=== PATIENT | male | born 1985 | race Caucasian/White ===

== ENCOUNTER 2022-05-27 02:14 | Emergency (ER) | payer OTHER, SELFPAY ==
[2022-05-27 02:24] VITALS: BP 144/125; PULSE 92; RESP 20; TEMP 36.3; O2SAT 98
[2022-05-27 02:30] VITALS: BP 157/86; PULSE 89; RESP 20; O2SAT 98
--- NOTE | 2022-05-27 02:54 | ED.DIZZY ---
HPI - Dizziness General Chief Complaint: High Blood Pressure Stated Complaint: High Blood Pressure Time Seen by Provider: 05/27/22 02:35 Source: patient and family Mode of arrival: ambulatory Limitations: no limitations History of Present Illness HPI Narrative: Patient presents with a spell of feeling unwell about 90 minutes prior to arrival, lasting about a 1/2 hour in very gradually improving, no longer present. There was no chest pain but rather a feeling when he awoke from sleep that he was on well, he does not describe what he would feel consistent with anxiety. There was no racing heart. He felt subjectively dizzy and lightheaded but no syncope, vision changes or neurological changes no prior history of similar symptoms. He does have a notable history of hypertension which is treated with lisinopril. No recent adjustments to his medications. He believes that he has seen his primary care provider within about 6 months. He had not checked his blood pressure at home in the past 2 weeks but did decide to check it tonight when he was feeling unwell and it remained around 180 over 100 on several checks. No headache, no vision changes. Symptoms have improved quite a bit. He has never had a stress test. Primary care is through [facility]. No recent illness, no fevers, no trauma no injury. He does have a notable history of obstructive sleep apnea reports good compliance with his CPAP. On specific questioning, he does admit to a stressful job but no recent specific events. Did not try any interventions at home to relieve his symptoms prior to coming to the ED. Past medical history notable for hypertension, obstructive sleep apnea, morbid obesity. Surgical history is notable either for an appendectomy or cholecystectomy, he cannot remember which. Family history is positive for heart disease. He does not smoke, denies any alcohol ingestion. No other risk factors other than listed above for heart disease Related Data Home Medications Medication Instructions Recorded Confirmed lisinopril 20 mg tablet mg 05/27/22 Allergies Allergy/AdvReac Type Severity Reaction Status Date / Time No Known Drug Allergies Allergy Verified 05/27/22 02:23 Review of Systems Narrative: Negative for generalized, HEENT, other cardiovascular, respiratory, GI, skin, musculoskeletal or other neurological changes. Denies anxiety. PFSH PFSH Social History Smoking Status: Never smoker Do you use any of these nicotine containing products: None Second hand tobacco smoke exposure: No How often do you have a drink containing alcohol: monthly or less How often do you have six or more drinks on one occasion: Never AUDIT-C Alcohol total score: 1 Non-prescribed substance use: denies use service: No Exam Const: Vital Signs, click to edit/add: Vital Signs - 24 hr 05/27/22 02:24 05/27/22 02:30 Temperature 97.4 F L Pulse Rate [Left P ulse Oximeter] 92 89 Respiratory Rate 20 20 Blood Pressure [Ri ght Upper Arm] 144/125 H 157/86 H Pulse Oximetry 98 98 Oxygen Delivery Me thod Room Air Room Air Documenting provider has reviewed patient's vital signs: yes Common normals: no apparent distress General appearance: cooperative Other: Seems mildly anxious. Spouse seems supportive HENMT: Common normals: normocephalic Head and scalp: normocephalic Face and sinus: normal facial exam Mouth: oral and palatal mucosa normal Throat: posterior oropharynx normal Eye: Common normals: PERRL, EOMs intact bilaterally and conjunctivae normal Alignment: alignment normal Conjunctiva: conjunctiva(e) normal Pupil: PERRL Neck & C-Spine: Common normals: full ROM and no lymphadenopathy Resp: Common normals: normal respiratory effort and clear to auscultation bilaterally Auscultation: clear to auscultation bilaterally Cardio: Common normals: regular rate, regular rhythm, S1 normal heart sound, S2 normal heart sound, no murmurs and peripheral pulses 2+ throughout Rate: regular rate Rhythm: regular rhythm Heart sounds: S1 normal and S2 normal Peripheral pulses: pulses 2+ throughout GI: Other: Obese but soft. Cannot palpate organ edges but no obvious organomegaly. No tenderness. Extremity: Other: Mild dependent seeming edema, equal and symmetric bilaterally. No signs of venous stasis Neuro: Speech: speech normal Motor exam: strength 5/5 throughout and no movement abnormalities noted Other: Muscle strength +5/5 in all 4 extremities. No tremors. Psych: Other: Engaged and cooperative. Does seem mildly anxious but thought process logical and well organized with good insight. Skin: Common normals: no rashes or lesions noted General skin exam: no rashes or lesions noted Course Vital Signs Vital signs: Initial Vital Signs Temperature 97.4 F L 05/27/22 02:24 Temperature Source Temporal Artery Scan 05/27/22 02:24 Pulse Rate 92 05/27/22 02:24 Pulse Rhythm 05/27/22 02:24 Respiratory Rate 20 05/27/22 02:24 Blood Pressure 144/125 H 05/27/22 02:24 Blood Pressure Mean 131 05/27/22 02:24 Blood Pressure Position Semi-Fowlers 05/27/22 02:24 Pulse Oximetry 98 05/27/22 02:24 Oxygen Delivery Method 05/27/22 02:24 Vital Signs Temperature 97.4 F L 05/27/22 02:24 Pulse Rate 92 05/27/22 02:24 Respiratory Rate 20 05/27/22 02:24 Blood Pressure 144/125 H 05/27/22 02:24 Pulse Oximetry 98 05/27/22 02:24 Oxygen Delivery Method 05/27/22 02:24 Temperature 97.4 F L 05/27/22 02:24 Pulse Rate 89 05/27/22 02:30 Respiratory Rate 20 05/27/22 02:30 Blood Pressure 157/86 H 05/27/22 02:30 Pulse Oximetry 98 05/27/22 02:30 Oxygen Delivery Method 05/27/22 02:30 MDM - Dizziness MDM Narrative Medical decision making narrative: Suspect stress reaction anxiety, blood pressure already improving here in the ED. No signs of stroke. Will do some basic blood work, EKG and monitor cardiac status. He will receive a 0.5 mg of oral lorazepam to see if this has any effect on his dizziness. Will check troponins and if this is normal, anticipate discharge with outpatient follow-up, consideration of stress test. Update: Labs reviewed. Normal. Normal troponins, normal EGD. Went over findings with patient and he did then remember that he has had a stress test within the last 6 months which is even more reassuring. He did have improvement of his dizziness with the lorazepam though it did make him a little bit sleepy as expected. His will be able to drive him home. Follow up with his primary care provider in 2 weeks with a lot of his recent blood pressures and a symptom diary for further management. Medical Records Attestation: I reviewed the patient's medical records. Lab Data Attestation: I reviewed the patient's lab results. Labs: Lab Results 05/27/22 05/27/22 05/27/22 Range/Units 02:46 03:00 03:00 WBC 12.10 H (4.50-11.00) K/uL RBC 4.94 (4.30-5.90) m/uL Hgb 14.1 (13.5-17.5) gm/dL Hct 43.0 (37.0-53.0) % MCV 87 (80-100) fL MCH 29 (26-34) pg MCHC 33 (32-36) gm/dL RDW Coeff of Edna 14.3 (11.5-15.5) % Plt Count 254 (140-440) K/uL Neut % (Auto) 78.7 H (42.0-72.0) % Lymph % (Auto) 12.6 L (20-44) % [place] % (Auto) 6.4 (0.0-11.0) % Eos % (Auto) 1.8 (0.0-7.0) % Baso % (Auto) 0.3 (0.0-3.0) % Neut # (Auto) 9.50 H (1.7-7.0) K/uL Lymph # (Auto) 1.50 (0.90-2.90) K/uL [place] # (Auto) 0.80 (0.00-0.90) K/UL Eos # (Auto) 0.20 (0.00-0.50) K/uL Baso # (Auto) 0.00 (0.00-0.30) K/uL Abs Immat Gran (auto) 0.02 (0.00-0.30) K/uL Sodium 137 (135-149) mmol/L Potassium 3.8 (3.6-5.1) mmol/L Chloride 105 (96-114) mmol/L Carbon Dioxide 23 (20-32) mmol/L BUN 18 (5-24) mg/dL Creatinine 0.9 (0.5-1.5) mg/dL Estimated GFR 112 ml/min Glucose 115 (60-115) mg/dL Calcium 9.0 (8.4-10.6) mg/dL POC Troponin I 0.01 (0.01-0.04) ng/ml ECG Data Attestation: I personally reviewed and interpreted this ECG as follows: ECG interpretation date: 05/27/22 ECG interpretation time: 03:03 Interpretation: Normal sinus rhythm with normal axis. Good R-wave progression with no ST or T-wave abnormalities. No prior EKG available for review Discharge Plan Discharge Clinical Impression: Stress reaction Patient Disposition: Home w/ Parent or Adult Condition: Improved Instructions: Stress (ED), Chronic Hypertension (ED) Additional Instructions: Your EKG is normal and your blood work is reassuring. This is great news. I suspect that you had a reaction to recent stress causing your blood pressure to go up and the dizzy symptoms. These may happen several days after a stressful event and may not be able to be related to anyone thing in particular. Your blood pressure has improved to reasonable levels, I do not recommend changes to your medications. I would like for you to make a followup appointment with her primary care doctor in 1-2 weeks and keep a symptom diary in the interim. If you are continuing to experience these episodes, additional management of anxiety may be warranted. He should also consider doing a stress test to look at your heart if you continue to have symptoms. Come back to the ED if her symptoms worsened significantly. Activity Level: No Restrictions Discharge Diet: Regular Prescriptions: No Action lisinopril 20 mg tablet Stand Alone Forms: [employer] Info Instructions
[2022-05-27] MEDS: LORazepam 0.5 MG TABLET PO (02:56)
[2022-05-27 03:10] LABS: Basophils Percent Auto 0.3 % (0.0-3.0); Eosinophils Percent Auto 1.8 % (0.0-7.0); Hemoglobin* 14.1 gm/dL (13.5-17.5); Immature Granulocytes Abs Auto 0.02 K/uL (0.00-0.30); Lymphocytes Percent Auto 12.6 % (20-44); Mean Corpuscular HGB Conc 33 gm/dL (32-36); Mean Corpuscular Hemoglobin 29 pg (26-34); Mean Corpuscular Volume 87 fL (80-100); Monocytes Percent Auto 6.4 % (0.0-11.0); Neutrophils Percent Auto 78.7 % (42.0-72.0); Platelet Count* 254 K/uL (140-440); RDW Coefficient of Variation % 14.3 % (11.5-15.5); Red Blood Count 4.94 m/uL (4.30-5.90)
[2022-05-27 03:14] LABS: Slide Review Reflex No
[2022-05-27 03:15] LABS: Troponin, Point-of-Care* 0.01 ng/ml (0.01-0.04)
--- OUTSIDE RECORDS SUMMARY | 2022-05-27 03:15 | XMS_ITS | Encounter Summary ---
:1985 Author Organization [facility] Address [address] [place] [address] Care Team Providers Name Role Phone Unavailable Primary Care Provider Unavailable Reason for Visit Reason Comments COVID Nurse Line Encounter Details Date Type Department Care Team Description 08/06/2020 Clinical Communication Division of NEIDA Lowe Nurse Brittanie [facility] Aurelio Sanches [facility] [address] [place] [address] in [facility] [address] [place] [phone] [address] [facility] (Work) [place] [phone] Social History Tobacco Use Types Packs/Day Years Used Date Smoking Tobacco: Never Assessed Sex Assigned at Date Recorded Not on file documented as of this encounter Miscellaneous Notes Telephone Encounter - Lori Lowe RHank. - 08/06/2020 4:00 PM BRANCH LENDING OFFICER COVID-19 Nurse Line Screening ASSESSMENT Combo COVID + Upper Respiratory Infection (URI) Screening Select the most appropriate pathway: : Adult Have you had close contact* with a person who has a LABORATORY CONFIRMED case of COVID-19 in the past 14 days?: Yes- Provide quarantine instructions. (Continue Screening)( tested positive yesterday(08/05/20)) In the last 48 hours, have you had a fever* OR symptoms that are unrelated to a preexisting illness?: Fever, New cough, New muscle aches, New change or loss of taste sensation Do you have any of the following urgent symptoms?: No urgent symptoms noted (Continue Screening) Do you have any of the following respiratory syntonical virus (RSV) complications? : No complications noted (Continue Screening) Are all the following symptoms present: temperature of 100.0 degrees Fahrenheit or greater, muscle aches or headache AND a cough?: No all symptoms are not present (End Screening) Symptom Onset Date of symptom onset: 08/04/20 Testing Recommendation Endpoint Is testing recommended? : Recommended to test PLAN Endpoint recommendation: Screening positive, testing indicated, advised to be swabbed for COVID-19 and Influenza, sent to [facility] building located at [address] You must call [phone] leo appointment time. Testing hours are Daily 9 am to 7 pm. When you arrive at the testing site: Remain in your vehicle and check-in by phone using the same appointment line number. and Please avoid using public transportation per CDC recommendation. If you do not have personal transportation please self-quarantine until a personal transportation option is available. and Provided instruction to quarantine for 14 days from the last contact exposure to a confirmed COVID-19 case and testing is recommended. The best time to test is 5-7 days after last contact with an infected individual in order to havethe best chance of detecting infection. If you are unsure of your last contact, or would like testing now, we can perform testing now. Even if your test is negative, you should continue to follow official public health quarantine recommendations. Contact your primary care team with any new symptoms. Care Points: -Wash hands frequently with soap and water for at least 20 seconds -If soap and water are not available, use a hand architectural designer -Avoid touching your eyes, nose and mouth. -Clean and disinfect high-touch surfaces routinely. -Wear a mask over your nose and mouth. A cloth face cover is not a substitute for social distancing -Continue to keep about 6 feet between yourself and others. -Avoid public areas and public transportation. -Find new ways to connect with family and friends, get support and share feelings. -Seek emergent care if any of the following occur Trouble breathing Bluish lips or face Persistent pain or pressure in the chest New confusion or inability to rouse. -Notify your regular care provider of any new or worsening symptoms. Symptomatic Carepoints: Separate yourself from others and stay in a specific sick room if able. Avoid sharing personal or household items. Rest. Hydrate. Take Acetaminophen/Ibuprofen as needed to control fever and muscles aches. Use over the counter medications as needed for other symptoms. ExposureCarepoints: Continue to quarantine for 14 days from your last known exposure to someone with a laboratory confirmed case of COVID-19 regardless of a negative test result unless otherwise directed. If you remain asymptomatic and wish to be tested, it is recommended that you wait 5-7 days after the exposure before testing unless otherwise directed. Testing is recommended if you become symptomatic at any point. Education: Patient/caregiver able to teach back Patient agreeable to plan of care: Yes The following references were used: [facility] novel coronavirus (COVID- 19) resources Nursing judgement CH LENDING OFFICER documented in this encounter Plan of Treatment Not on filedocumented as of this encounter Visit Diagnoses Not on filedocumented in this encounter
--- OUTSIDE RECORDS SUMMARY | 2022-05-27 03:15 | XMS_ITS | Encounter Summary ---
:1985 Author Organization [facility] Address [address] [place] [address] Care Team Providers Name Role Phone Unavailable Primary Care Provider Unavailable Encounter Details Date Type Department Care Team Description 12/23/2020 Orders Only [facility] PCP [facility] Teetee Carter M.D. [address] [place], [place] [phone] (Wo rk) Social History Tobacco Use Types Packs/Day Years Used Date Smoking Tobacco: Never Assessed Sex Assigned at Date Recorded Not on file documented as of this encounter Plan of Treatment Not on filedocumented as of this encounter Visit Diagnoses Not on filedocumented in this encounter
--- OUTSIDE RECORDS SUMMARY | 2022-05-27 03:15 | XMS_ITS | Encounter Summary ---
:1985 Author Organization [facility] Address [address] [place] [address] Care Team Providers Name Role Phone Unavailable Primary Care Provider Unavailable Encounter Details Date Type Department Care Team Description 08/07/2020 Admin Visit Department of Family Medicine, [facility] [place] in [place], [place] [address] [phone] Social History Tobacco Use Types Packs/Day Years Used Date Smoking Tobacco: Never Assessed Sex Assigned at Date Recorded Not on file documented as of this encounter Plan of Treatment Not on filedocumented as of this encounter Visit Diagnoses Not on filedocumented in this encounter Additional Health Concerns Infection Onset Date Last Indicated Resolved Time COVID19 Pending 08/07/2020 08/07/2020 08/08/2020 1:21 PM IT PROGRAM ENGAGEMENT DIRECTOR documented as of this encounter
--- OUTSIDE RECORDS SUMMARY | 2022-05-27 03:15 | XMS_ITS | Encounter Summary ---
:1985 Author Organization [facility] Address [address] [place] [address] Care Team Providers Name Role Phone Unavailable Primary Care Provider Unavailable Encounter Details Date Type Department Care Team Description 08/06/2020 Clinical Communication Department of Orthopedic [facility], Pcp Surgery in [place], [place] [address] [place] [address] Social History Tobacco Use Types Packs/Day Years Used Date Smoking Tobacco: Never Assessed Sex Assigned at Date Recorded Not on file documented as of this encounter Miscellaneous Notes Telephone Encounter - Yadira Domínguez - 08/06/2020 3:57 PM CST What is the purpose of the call?: Requesting Testing Only Request Testing In the past 14 days are any of the following symptoms new to you and not related to an existing health condition?: New cough, New sore throat, New myalgias (muscle aches), New change or loss of taste sensation Because of symptoms, transfer patient to: : [place] COVID Nurse Line (End Screening) Symptom Onset Date of symptom onset: 08/05/20 Testing Recommendation Endpoint Is testing recommended? : Transferred to nursing call line Plan: Endpoint recommendation: Transferred to Nursing/COVID Line/Care Team *Reminder if sending patient for testing in [facility] or [facility], route encounter to the correct testing pool. COINER documented in this encounter Plan of Treatment Not on filedocumented as of this encounter Visit Diagnoses Not on filedocumented in this encounter
--- OUTSIDE RECORDS SUMMARY | 2022-05-27 03:15 | XMS_ITS | Encounter Summary ---
:1985 Author Organization [facility] Address [address] [place] [address] Care Team Providers Name Role Phone Unavailable Primary Care Provider Unavailable Reason for Visit Reason Comments Follow-up Encounter Details Date Type Department Care Team Description 08/08/2020 Clinical Communication Division of General Edith Franz, Follow-up Internal Medicine in [place]S., R.N. [place], [place] [address] [facility] [address] [place] [id number] [phone] Social History Tobacco Use Types Packs/Day Years Used Date Smoking Tobacco: Never Assessed Sex Assigned at Date Recorded Not on file documented as of this encounter Miscellaneous Notes Telephone Encounter - Edith Franz, M.S., R.N. - 08/08/2020 2:41 PM LONG DISTANCE BILLING OPERATOR SUBJECTIVE CHIEF COMPLAINT / REASON FOR CALL Follow-up Information Discussed Mr. Richards contacted by COVID-19 Frontline Care Team (CFCT) Registered Nurse for self-monitoring symptom instruction and education related to positive test for SARS-CoV-2 (the virus that causes COVID-19). [facility] and the Center for Disease Control (CDC) require you adhere to symptom monitoring for a minimum of 10 days and follow certain precautions to control the spread of this disease. You are also required to be isolated in your home until further directed by your medical team. During this time the COVID-19 Frontline Care Team will follow up and a Registered Nurse from our team will contact you by phone to follow-up on symptom progression. I have reinforced the importance of isolation with the patient. I also shared that if the patient has any household contacts that start to have symptoms, they should isolate themselves and call the COVID Nurse line at [phone] for assessment and direction. Self-monitor your symptoms at home including dyspnea, chest pain, dizziness/lightheadedness, vomiting, diarrhea, cough, loss or smell or taste, headache, chills, fever, and runny nose and if they startto worsen, contact a member of our Care Team for guidance by calling [phone], 7 days a week from 8am-5pm. If you become significantly ill, call 911 or go to the emergency department. Please wear aface mask when seeking medical services. We discussed that while currently there is not a treatment for COVID-19 as new therapies become available, we may reach out if you meet the indications to receive them, and if a provider thinks you could benefit from receiving them. A CFCT RN steam and power supervisor will be calling back for continued monitoring and follow-up as well as discussion regarding repeat testing, as appropriate. Patient advised, if applicable, to contact their speciality provider for discussion and/or management of other disease processes. Please notify your recent close contacts that they may have been exposed to COVID-19 and would need to quarantine for 14 days since their last contact with you while you were contagious. A close contact is someone who was within 6 feet of an infected person for a cumulative total of 15 minutes or moreover a 24-hour period starting from 2 days before illness onset (or, for asymptomatic patients, 2 days prior to test specimen collection) until the time the patient is isolated. If you have further questions about what constitutes a close contact, please contact your local public health department or visit the CDC website (hyperlink to https://www.cdc.gov/coronavirus/2019-ncov/php/contact-tracing/cont oby-tzsmrrd-misb/appendix.html). PLAN Disposition/Recommendation: self-care appropriate at this time, patient encouraged to call back withquestions Information/Education: patient/caller able to teach back Caller agreeable to plan of care: yes The following references were used: nursing clinical judgement and website www.cdc.gov DISTANCE BILLING OPERATOR documented in this encounter Plan of Treatment Not on filedocumented as of this encounter Visit Diagnoses Not on filedocumented in this encounter Additional Health Concerns Infection Onset Date Last Indicated Resolved Time COVID19 Pending 08/07/2020 08/07/2020 08/08/2020 1:21 PM LONG DISTANCE BILLING OPERATOR [id number]: Patient has met criteria for release from isolation. Please see nursing note for further details. 08/07/2020 08/07/20202019 4:47 PM LONG DISTANCE BILLING OPERATOR Rosa Cummings R.N. documented as of this encounter
--- OUTSIDE RECORDS SUMMARY | 2022-05-27 03:15 | XMS_ITS | Encounter Summary ---
:1985 Author Organization [facility] Address [address] [place] [address] Care Team Providers Name Role Phone Unavailable Primary Care Provider Unavailable Encounter Details Date Type Department Care Team Description 08/08/2020 Virtual Visit Division of General Jareth Tracy COV ID-19 Infection Internal Medicine juliet Reid M.D. (Primary Dx) [place], [place] [address] [facility] [address] [place] [phone] Social History Tobacco Use Types Packs/Day Years Used Date Smoking Tobacco: Never Assessed Sex Assigned at Date Recorded Not on file documented as of this encounter Progress Notes Jareth Tracy M.D. - 08/08/2020 2:10 PM CST TELEPHONE COMMUNICATION NOTE for CFCT This was a telephone notification to Mr. Richards to notify them that their PCR test for SARS-CoV-2 (the virus that causes COVID-19) has returned positive.. The patient was interviewed, but not personallyexamined. Hotel Registration Clerk: no Currently Mr. Richards has the following symptoms: ??? Cough, Chills, Myalgia and Sore throat ??? Date of symptom onset 08/05/2020 ??? Since onset, symptoms have remained the same Mr. Richards has the following risk factors for severe infection: ??? None Was Mr. Richards hospitalized? No The following features of severe or critical COVID infection are/were present: ??? None Risk Factors for Severe Infection w/ COVID-19 Current as of 29 minutes ago 1 0 - 2 Points: Low Risk 3 - 5 Points: Medium Risk >= 6 Points: High Risk The patient's score has not changed in the past year.: No Change Details Returns the total points for all positive risk factors for severe infection with COVID-19 Points Metrics 0 Age: 34 Current as of 29 minutes ago 1 Sex: Male Current as of 29 minutes ago 0 Has Hypertension: No Current as of 29 minutes ago 0 Has Congestive Heart Failure: No Current as of 29 minutes ago 0 Has Congenital Heart Disease: No Current as of 29 minutes ago 0 Has Coronary Artery Disease: No Current as of 29 minutes ago 0 Has Chronic Lung Disease or Asthma: No Current as of 29 minutes ago 0 Has Diabetes: No Current as of 29 minutes ago 0 Patient is Immune Compromised: No Current as of 29 minutes ago 0 Mcc Patient: No Current as of 29 minutes ago 0 COVID-19 Component - End State Renal Disease: 0 Current as of 29 minutes ago 0 Chronic Liver Disease Registry: No Current as of 29 minutes ago 0 : No Current as of 29 minutes ago Mr. Richards has been in the following facilities in the last 14 days: ??? 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 PROBLEM LIST There is no problem list on file for this patient. RESULTS SARS CoV-2 RNA, TMA Date Value Ref Range Status 08/07/2020 Detected (A) Undetected Final Comment: SARS-CoV-2 RNA present. ----ADDITIONAL INFORMATION---- This molecular amplification test was performed using the Aptima SARS-CoV-2 assay ([employer] on the [employer] System under emergency use authorization (EUA) by the U.S. Food and Drug Administration. Fact sheets for this EUA assay can be found at the following links: For Healthcare Providers: https://www.fda.gov/media/666193/download For Patients: https://www.fda.gov/media/699935/download ASSESSMENT/PLAN #1 COVID-19 disease Upcoming [id number] appointments: No Recommendations: Day 0 is 08/07/2020. Symptom monitoring and release from isolation through [facility] CFCT nursing. Initial education call necessary Self-isolation: at least 10 days from the date of the positive PCR. If any symptoms develop, they should contact their healthcare providers. ??? Mr. Richards was advised to continue to monitor their symptoms including dyspnea, chest pain, cough, fevers, lightheadedness/dizziness and vomiting/diarrhea. o If symptoms are worsening, please contact the [facility] CFCT nursing team at [phone]. ??? Worsened shortness of breath ??? New or worsening cough ??? New productive cough or cough with blood ??? New chest pain or pain with breathing ??? Fevers, chills, sweats ??? Vomiting or diarrhea ??? Lightheadedness ? ? New temperature > 38.3 ??C ??? Fast heart rate ??? Fast breathing rate o If directed to the Emergency Room or other care facility, the patient was reminded to - Inform EMS of positive COVID result and wear a mask prior to EMS arrival if available. - If patient is well enough to transport themselves to the emergency room, they should drive themselves (not use taxi, ride-share or public transport). ??? We strongly recommend continuing self-isolation until advised otherwise. o Mr. Richards is aware that they need to: - Remain at home unless requiring medical care - Separate themselves from other people in the home - Avoid sharing personal household items - Clean and disinfect 'high-touch' surfaces daily - Wear a facemask when around other people and cover coughs/sneezes - Practice good hand hygiene - Avoid touching your eyes, nose, and mouth ??? Self-isolation should be continued until the following criteria are met and released by local public health if applicable: ??? Minimum isolation as specified above o AND ??? At least 3 days (72 hours) have passed since recovery defined as resolution of fever without theuse of fever-reducing medications o AND ??? Improvement in symptoms (e.g., cough, shortness of breath, diarrhea) o The above isolation recommendation may need to be adjusted based on the clinical course. - https://www.Sand[employer].com/watch?time_continue=6&v=UuPB6uGjIMb&feature=emb_logo o Testing prior to release from isolation is NOT recommended by CDC or [facility] Infection Prevention and Control for clinical purposes except in extremely rare cases. o The patient was also advised to follow final recommendations as per local public health department/occupational health if relevant. ??? Advised to contact their employer's occupational health division to notify them of positive test o If the patient and/or their employer have questions about return to work best practices, they should contact [facility] Occupational Medicine at [email or web address]. o The patient should receive approval from their employer's occupational health division before returning to work. ??? Recommend self isolation for all household members/close contacts. o If any of these individuals are immunocompromised or have serious chronic medical conditions, please have them contact their primary care physician to let them know they have been exposed to close contact with COVID-19 o If unwell, recommend contacting their health care provider. Presenting directly to of the ED can be considered in the case of severe symptoms. o These individuals should call ahead to minimize wait times. The [facility] COVID Triage Line can be reached at [phone]. ??? Mr. Richards was advised that COVID-19 is a notifiable disease and that they will be contacted by [facility] for contact tracing. Please review the links below for additional education. o [facility] recommendations on isolation - https://www.[facility].org/patient-education?VID=VID-70150511 o Additional information about COVID-19 - https://www.cdc.gov/coronavirus/2019-ncov/ o Cognitive Behavior Therapy-Insomnia to help improve sleep - https://[facility]/PatientEducation/PatientLearning/index.html#/ o Building Resiliency During the COVID-19 Pandemic - https://[facility]/2020/PatientEducation/content/index.html#/ ??? Consider donating convalescent plasma once you have recovered from your illness (14 days after symptoms have resolved) o Survey to assess eligibility: https://redcap2.irvine.edu/redcap/surveys/?s=8ABV0LGM6A and/ or contact convalescent.plasma@[facility] o More information is available at - https://www.uscovidplasma.org/ - https://ccpp19.org/ - https://covidplasma.org/ This note is being cc'ed to the patient's primary care physician for their situational awareness only. The COVID-19 Frontline Care Team will follow up on next steps related to the COVID-19 infection. From a [facility] employee exposure standpoint if Mr. Richards was seen in person: No additional action needed if contact with the patient occurred while either: ??? Staff and patient were both wearing face masks OR ??? Staff were wearing face masks and eye protection If there is concern for staff exposure due to individual PPE breach, please touch base with Occupational Health. Jareth Tracy M.D. COVID-19 Frontline Care Team [facility] This was a virtual visit. The patient was not seen face to face because of COVID-19. Total time spent in counselin minutes T CHANGER documented in this encounter Plan of Treatment Not on filedocumented as of this encounter Visit Diagnoses Diagnosis COVID-19 Infection - Primary documented in this encounter Additional Health Concerns Infection Onset Date Last Indicated Resolved Time COVID19 Pending 08/07/2020 08/07/2020 08/08/2020 1:21 PM CHART CHANGER [id number]: Patient has met criteria for release from isolation. Please see nursing note for further details. 08/07/2020 08/07/20202019 4:47 PM CHART CHANGER Rosa Cummings R.N. documented as of this encounter
--- OUTSIDE RECORDS SUMMARY | 2022-05-27 03:15 | XMS_ITS | Clinical Summary ---
:1985 Author Organization [facility] Address [address] [place] [address] Care Team Providers Name Role Phone Unavailable Primary Care Provider Unavailable Source Comments Patient records contain information from all sites at [facility]. For routine questions regarding patient records, call [phone] during business hours, M-F 8:00 AM - 5:00 PM Central Time. Record requests for emergency care only can be directed to [phone] at any time.[facility] Social History Tobacco Use Types Packs/Day Years Used Date Smoking Tobacco: Never Assessed Sex Assigned at Date Recorded Not on file Plan of Treatment Health Maintenance Due Date Last Done Comments HIV Screening 1985 Hepatitis B Vaccines (1 of 3 1985 - 3-dose series) Hepatitis C Screening 1985 Lipid (Cholesterol) Screening 1985 COVID-19 Vaccine (#1) 05/07/1984 DTaP,Tdap,and Td Vaccines (3 12/17/2019 12/16/2009, - Td or Tdap) 12/03/1997 Depression Screening (Annual 08/21/2021 PHQ-2) Influenza Vaccine (#1) 2022 07/08/2010, 07/08/2010 Pneumococcal vaccine (0-64 Aged Out No lo nger eligible based years) on patient's age to complete this to [facility] Insurance Payer Benefit Plan / Subscriber ID Effective Phone Address T ype Group Dates [facility] SHAWCedexis [facility] [id number] 2020-Pre [phone] [address] PPO OPEN ACCESS sent [address] [place] [address]
--- OUTSIDE RECORDS SUMMARY | 2022-05-27 03:15 | XMS_ITS | Encounter Summary ---
:1985 Author Organization [facility] Address [address] [place] [address] Care Team Providers Name Role Phone Unavailable Primary Care Provider Unavailable Reason for Visit Reason Onset Date Comments Testing For Upper Respiratory Virus Symptoms 08/07/2020 Encounter Details Date Type Department Care Team Description 08/07/2020 External Outreach Department of [facility] In [facility] Medicine, Tu Clayton, Respiratory (Pr imary Professional and P.A.-C. Dx) [facility] in [address] [place] [address] [address] [place], [place] [phone] (Work) [phone] Social History Tobacco Use Types Packs/Day Years Used Date Smoking Tobacco: Never Assessed Sex Assigned at Date Recorded Not on file documented as of this encounter Progress Notes Antoinette Castillo R.N. - 08/07/2020 7:48 AM CST Encounter created for symptomatic infectious disease screening with possible COVID, Influenza, and RSV testing. UCTION LINE MECHANIC documented in this encounter Plan of Treatment Not on filedocumented as of this encounter Procedures Procedure Name Priority Date/Time Associated Diagnosis Comme nts INFLUENZA A/B AND Routine 08/07/2020 3:05 PM Infection Upper R esults for this RSV, PCR, VARIES PRODUCTION LINE MECHANIC Respiratory procedure a re in the results section. SARS CORONAVIRUS-2 Routine 08/07/2020 3:05 PM Infection Upper Results for this RNA, V PRODUCTION LINE MECHANIC Respiratory procedure are i n the results section. documented in this encounter Results Influenza A/B and RSV, PCR, Varies (08/07/2020 3:05 PM PRODUCTION LINE MECHANIC) [facility] Method Time Signature Influenza A/B Swab, 08/10/2020 DTL and RSV, Nasopharynx 3:49 PM PRODUCTION LINE MECHANIC Source Influenza A, Undetected Undetected 08/10/2020 DTL PCR 3:49 PM PRODUCTION LINE MECHANIC Comment: Influenza A RNA absent. Influenza B, PCR Undetected Undetected 08/10/2020 3:49 PM CS T DTL Comment: Influenza B RNA absent. Respiratory Syncytial Virus, PCR Undetected Undetected 3:49 PM PRODUCTION LINE MECHANIC DTL Comment: RSV RNA absent. ----ADDITIONAL INFORMATION---- This test has been modified from the man ufacturer's instructions. Its performance characteristics were determi dayanna by [facility] in a manner consistent with CLIA requirements. This test has not been cleared or approved by the U.S. Food and Drug Administration . Specimen Anatomical Collection Method Collection Time Receive d Time (Source) Location / / Volume Laterality Varies 08/07/2020 3:05 PM 0 7:35 (Nasopharynx) PRODUCTION LINE MECHANIC AM PRODUCTION LINE MECHANIC Tu LucioARon LAB MICROBIOLOGY - GENERAL O RDERABLES Performing Organization Address City/State/ZIP Code Phon e Number [facility] - [address] [place], [place] [address] [facility] [place] [address] Laboratories-[facility] [address] (ABNORMAL) SARS Coronavirus-2 RNA, V Symptomatic (08/07/2020 3:05 PM PRODUCTION LINE MECHANIC) [facility] Method Time Signature SARS-CoV-2 Swab, 08/08/2020 ECLR Specimen Nasopharynx 1:20 PM PRODUCTION LINE MECHANIC Source SARS CoV-2 Detected (A) Undetected 08/08/2020 ECLR RNA, TMA 1:20 PM PRODUCTION LINE MECHANIC Comment: SARS-CoV-2 RNA present. ----ADDITIONAL INFORMATION---- This molecular amplification test was pe rformed using the Aptima SARS-CoV-2 assay ([employer] on the [employer] tem under emergency use authorization (EUA) by the U.S. Food and Drug Administ vick. Fact sheets for this EUA assay can be fo und at the following links: For Healthcare Providers: https://www.fd a.gov/media/599626/download For Patients: https://www.fda.gov/media/ 391077/download Specimen Anatomical Collection Method Collection Time Receive d Time (Source) Location / / Volume Laterality Varies 08/07/2020 3:05 PM 0 9:52 (Nasopharynx) PRODUCTION LINE MECHANIC PM PRODUCTION LINE MECHANIC Tu Magaña P.A.-C. LAB MICROBIOLOGY - GENERAL O RDVIVIENNEBLES Performing Organization Address City/State/[facility] Phon e Number [facility] [address] [place] [phone] [facility] [place] [address] System [address] documented in this encounter Visit Diagnoses Diagnosis Infection Upper Respiratory - Primary documented in this encounter Additional Health Concerns Infection Onset Date Last Indicated Resolved Time COVID19 Pending 08/07/2020 08/07/2020 08/08/2020 1:21 PM PRODUCTION LINE MECHANIC documented as of this encounter
--- OUTSIDE RECORDS SUMMARY | 2022-05-27 03:15 | XMS_ITS | Encounter Summary ---
:1985 Author Organization [facility] Address [address] [place] [address] Care Team Providers Name Role Phone Unavailable Primary Care Provider Unavailable Reason for Visit Reason Comments Follow-up CFCT Appointment Request (Routine) - Closed Specialty Diagnoses / Procedures Referred By Contact Refer red To Contact General Internal Medicine Referral ID Status Reason Start Date Expiration Date Visits Requ ested Visits Authorized [id number] Closed 08/10/2020 08/10/2021 1 1 Encounter Details Date Type Department Care Team Description 08/17/2020 Clinical Communication Division of Alan Vasquez Follow-up (CFCT) Internal Medicine D, R.N. in [address] [place] [address] [place], [place] [phone] (Work) [phone] Social History Tobacco Use Types Packs/Day Years Used Date Smoking Tobacco: Never Assessed Sex Assigned at Date Recorded Not on file documented as of this encounter Miscellaneous Notes Telephone Encounter - Rosa Cummings R.N. - 08/17/2020 4:32 PM CST SUBJECTIVE CHIEF COMPLAINT / REASON FOR CALL Follow-up (CFCT) Information Discussed Mr. Richards contacted by nurse for day 12 follow-up regarding positive COVID-19 test result. We discussed the following symptoms to see if there was development of new or worsening symptoms since symptom onset, or positive result if swabbed while asymptomatic. Today the patient reports the following symptoms: Fever (>100.4oF or subjective fever): No longer experiencing Shortness of breath: Never had Chest pain or chest tightness: Never had Cough: No longer experiencing Runny nose/congestion: No longer experiencing Sore throat: No longer experiencing Chills: No longer experiencing Muscle aches: Getting better Diarrhea (more than 4 episodes a day): Never had Vomiting (more than 4 episodes a day): Never had Dizziness or lightheadedness: No longer experiencing Headache: No longer experiencing Fatigue: Never had Patient reports they were at a mass gathering one week prior to the onset of their symptoms: No. CFCT Provider directs need for repeat PCR testing: No. Current CDC guidelines indicate release from isolation is appropriate when symptom improvement criteria have been met. Routine repeat testing is no longer advised unless directed by the provider based on individual patient criteria. Based on the above symptom assessment: After day 12 of home isolation, should symptoms return or new symptoms develop, contact your primarycare provider. If you do not have a PCP please contact your local public health department. When calling indicate you had previously tested positive for COVID-19 and have completed 10 days of home isolation. All employment decisions are made by individual employers. Patient advised to contact [facility] as appropriate on return to work status. Return to work/school assessment for patients living in the [facility] region Patient reports anticipated need for restrictions/modifications in order to return to work/school: no Patient reports anticipated need for repeat testing in order to return to work/school: no If either of the above questions was answered 'yes', [facility] Occupational Medicine will be notified and will contact the patient to regarding return to work needs. Using established standards and provider plan of care for COVID-19 disease, the patient has completed CFCT program monitoring and is dismissed from the CFCT program. PLAN Disposition/Recommendation: recommended continue engagement in self-management activities Information/Education: patient/caller able to teach back Caller agreeable to plan of care: yes The following references were used: nursing clinical judgement; CFCT guidelines LATION GENETICIST Telephone Encounter - Herminia Aragon, R.N. - 08/17/2020 11:41 AM POPULATION GENETICIST SUBJECTIVE CHIEF COMPLAINT / REASON FOR CALL Follow-up (CFCT) Information Discussed Attempt was made by RN to assess patient to see if there has been a resolution of symptoms, he was currently on a conference call for work and asked that we try him back in a couple hours. LATION GENETICIST documented in this encounter Plan of Treatment Not on filedocumented as of this encounter Visit Diagnoses Not on filedocumented in this encounter Additional Health Concerns Infection Onset Date Last Indicated Resolved Time [id number]: Patient has met criteria for release from isolation. Please see nursing note for further details. 08/07/2020 08/07/20202019 4:47 PM POPULATION GENETICIST Rosa Cummings R.N. documented as of this encounter
--- OUTSIDE RECORDS SUMMARY | 2022-05-27 03:15 | XMS_ITS | Clinical Summary ---
:1985 Author Organization [facility] [place] [address] Care Team Providers Name Role Phone Ben Forrest MD Primary Care Provider [phone] Allergies No known active allergies Medications Medication Sig Dispensed Refills Start Date End Date Status multivitamin (MVI) Take 1 tablet by 0 07/08/2010 Active tablet mouth once daily. Cranberry 400 mg Take by mouth. 0 07/22/2021 Active capsule fexofenadine (SUYAPA) Take 180 mg by 0 07/22/2021 Active 180 mg tablet mouth once daily. Do not crush or chew. aspirin 81 mg cap Take 81 mg by 0 Active mouth. ketoconazole 2% Apply topically to 60 g 2 08/18/2021 Active topical (NIZORAL) affected area(s) 2 creamIndications: times daily. Intertrigo CPAPIndications: ANANYA CPAP machine for 1 Each 11 08/19/2021 Active (obstructive sleep home use at apnea) pressure 10 cmw epr of 2, nasal mask x1/3month with nasal cushion x2/mo lisinopriL (PRINIVIL; Take 1 Tablet (20 90 Tablet 3 09/14/2021 Active ZESTRIL) 20 mg mg) by mouth once tabletIndications: HTN daily. 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 01/29/2009 ANANYA 08/22/2008 AHI-63 09/01/2008 Tear film insufficiency, unspecified 06/11/2008 Encounters Date Type Specialty Care Team Description 05/13/2022 Office Visit Latonia Mauricio, OD Eye E xam (CEE/ocular health exam) 05/13/2022 Travel from Last 3 Months Immunizations Name Administration Dates Next Due Influenza, IIV3 (Age >=3 years) 07/08/2010 Td (Age >=7 Years) 12/03/1997 Tdap 12/16/2009 Family History Medical History Relation Name Comments Good Health Brother 3 Good Health Father borderline diabe dustin Good Health Mother Good Health Sister 2 Relation Name Status Comments Brother 1 (Age 27) car accident Brother 2 Alive Brother 3 Father Alive Mother Alive Sister 1 Alive Sister 2 Social History Tobacco Use Types Packs/Day Years Used Date Never Smoker 5 Smokeless Tobacco: Former User Chew Tobacco Cessation: Counseling Given: Yes Alcohol Use Standard Drinks/Week Comments Yes 0 (1 standard drink = 0.6 oz pure alcoho l) 5-10 drinks up to twice a week Alcohol Habits Answer Date Recorded How often do you have a drink containing Not asked alcohol? How many drinks containing alcohol do Not asked you have on a typical day when you are drinking? How often do you have six or more drinks Not asked on one occasion? Comment: 5-10 drinks up to twice a week 0 Sex Assigned at Date Recorded Not on file COVID-19 Exposure Response Date Recorded In the last 10 days, have you been in contact with No / Unsu re 05/13/2022 8:56 AM CDT someone who was confirmed or suspected to have Coronavirus/COVID-19? Obstetrics History Last Filed Vital Signs Vital Sign Reading Time Taken Comments Blood Pressure 131/85 09/14/2021 8:41 AM SHOVELER Pulse 83 09/14/2021 8:41 AM SHOVELER Temperature 36.9 ??C (98.4 ??F) 07/22/2021 2:32 PM SHOVELER Respiratory Rate 18 10/29/2019 8:26 AM CDT Oxygen Saturation 99% 09/14/2021 8:41 AM SHOVELER Inhaled Oxygen Concentration - - Weight 178.1 kg (392 lb 9.6 oz) 09/14/2021 8:41 AM SHOVELER Height 177.8 cm (5' 10) 09/14/2021 8:41 AM SHOVELER Body Mass Index 56.33 09/14/2021 8:41 AM SHOVELER Plan of Treatment Health Maintenance Due Date Last Done Comments COVID-19 vaccine series (#1) 05/07/1984 Hepatitis C screening for age 0311/04/2001 18-79 Tetanus booster 12/17/2019 12/16/2009, 12/03/1997 Lipids for age 35-44 10/20/2021 10/20/2016, 07/01/2008, 07/01/2008 Influenza for age 9-49 04/21/2022 07/08/2010 Depression screening for age 12+ 08/19/2022 08/19/2021, , 08/08/2019, Additional history exists BMI (ht and wt on same day) for 09/14/2022 09/14/2021, 12/0 09/2020, age 18+ 08/08/2019, Additional history exists Tdap Completed 12/16/2009 Results Not on filefrom Last 3 Months Insurance Payer Benefit Plan / Subscriber ID Effective Dates Phone Addre ss Type Group [employer] HP [id number] 2019-Prese [address] [place] [address] PREFERRED ONE PREFERRED [id number] 2014-Presen [address] [place] [address] (Work) Eleazar Richards Personal/Family Self 1985 [address] (Home) [address] [place] [address] Eleazar Richards Workers Comp Self 1985 [address] (Home) [place] [phone] (Work) [employer] [facility] [phone] [address] (Home) [place] [id number] Care Teams Box Car Checker Relationship Specialty Start Date End Date Ben Forrest MD PCP - General 09/24/[address] [place] [address]
[2022-05-27 03:23] LABS: Chloride* 105 mmol/L (96-114); Potassium* 3.8 mmol/L (3.6-5.1); Sodium* 137 mmol/L (135-149)
[2022-05-27 03:26] LABS: Blood Urea Nitrogen* 18 mg/dL (5-24); Carbon Dioxide* 23 mmol/L (20-32); Creatinine* 0.9 mg/dL (0.5-1.5); Estimated Glomerular Filt Rate 112 ml/min; Glucose* 115 mg/dL (60-115)
== END 2022-05-27 03:46 | disposition home or self-care (01) ==
LOC: ED 03:14
PROVIDERS: Emergency Provider Family Medicine; PCP Family Medicine
DX: F43.0 Acute stress reaction (principal)
CPT/HCPCS: 36415; 80048; 84484; 85025; 93005; 99282; 99284; A9270

== ENCOUNTER 2022-11-02 00:54 | Emergency (ER) | payer OTHER, SELFPAY ==
[2022-11-02 01:41] VITALS: PULSE 102; RESP 16; TEMP 36.6; O2SAT 98; BMI 51.5
--- NOTE | 2022-11-02 01:49 | CRLHL7_ITS ---
For Patients: As a result of the Century Cures Act, medical imaging exams and procedure reports are released immediately into your electronic medical record. You may view this report before your referring provider. If you have questions, please contact your health care provider. Indication: Severe proximal volar forearm pain after forced extension Technique: Right elbow 3 views Comparison: None Findings: Bones: Alignment is normal. No fractures or bone lesions. Joint spaces: Joint spaces are well maintained. No degenerative changes. No sign of joint effusion. Soft tissues: Unremarkable. Impression: No findings to explain pain. Dictated by Lazaro Oliver MD @ 11/03/2022 10:32:37 AM (Electronically Signed)
[2022-11-02 01:56] VITALS: TEMP 36.6
[2022-11-02] MEDS: IBUPROFEN 200 MG TABLET 600 MG PO (01:56)
[2022-11-02] MEDS: HYDROCODONE-ACETAMIN 5-325 MG 1 TAB 2 TAB PO (01:56)
[2022-11-02 02:40] VITALS: BP 156/88; PULSE 86; RESP 18; TEMP 36.8; O2SAT 98
--- NOTE | 2022-11-02 02:56 | ED.UPPEXIN ---
HPI - Extremity Injury (Upper) General Chief Complaint: Extremity Pain/Injury, Upper Stated Complaint: Tore everything in his lft arm Time Seen by Provider: 11/02/22 00:58 History of Present Illness HPI narrative: 36-year-old man presenting to the emergency department with complaint of left upper forearm/elbow area pain sustained while unloading truck. Was assisting with this unload and pulling tube of plastic as he describes it. Had sudden onset of severe pain. Escalated quickly and then with attempted to manipulate his arm the pain took him to his knees. He is having some tingling into his hand/fingers. No shoulder or back pain. Related Data Home Medications Medication Instructions Recorded Confirmed lisinopril 20 mg tablet mg 05/27/22 Allergies Allergy/AdvReac Type Severity Reaction Status Date / Time No Known Drug Allergies Allergy Verified 05/27/22 02:23 Review of Systems Status of ROS: Reports: 6 or more systems reviewed and unremarkable except as noted in History and below PFSH PFS Social History Smoking Status: Never smoker Do you use any of these nicotine containing products: None Second hand tobacco smoke exposure: No How often do you have a drink containing alcohol: monthly or less How often do you have six or more drinks on one occasion: Never AUDIT-C Alcohol total score: 1 Non-prescribed substance use: denies use service: No Exam Narrative: Exam Narrative: Large man. Sounds a little congested. Good range of motion at the shoulder without pain. Exquisitely sore to palpation without defect in the distal bicep and upper volar forearm. Any movement like flexion extension at the elbow or supination or pronation causes a great deal of pain. No tendon or muscle defect palpable. Has good pulses and sensation distally. lungs appear to be clear though somewhat labored breathing at times in apparent pain. Heart is in an elevated rate. Const: Vital Signs, click to edit/add: Vital Signs - 24 hr 11/02/22 01:41 11/02/22 01:56 11/02/22 01:56 Temperature 97.8 F 97.8 F 97.8 F Pulse Rate [Left P ulse Oximeter] 102 H Respiratory Rate 16 Blood Pressure [Ri ght Upper Arm] Pulse Oximetry 98 Oxygen Delivery Me thod Room Air 11/02/22 02:40 Temperature 98.2 F Pulse Rate [Left P ulse Oximeter] 86 Respiratory Rate 18 Blood Pressure [Ri ght Upper Arm] 156/88 H Pulse Oximetry 98 Oxygen Delivery Me thod Room Air Documenting provider has reviewed patient's vital signs: yes Course Vital Signs Vital signs: Initial Vital Signs Temperature 97.8 F 11/02/22 01:41 Temperature Source Temporal Artery Scan 11/02/22 01:41 Pulse Rate 102 H 11/02/22 01:41 Pulse Rhythm 11/02/22 01:41 Respiratory Rate 16 11/02/22 01:41 Pulse Oximetry 98 11/02/22 01:41 Oxygen Delivery Method 11/02/22 01:41 Vital Signs Temperature 97.8 F 11/02/22 01:41 Pulse Rate 102 H 11/02/22 01:41 Respiratory Rate 16 11/02/22 01:41 Pulse Oximetry 98 11/02/22 01:41 Oxygen Delivery Method 11/02/22 01:41 Temperature 98.2 F 11/02/22 02:40 Pulse Rate 86 11/02/22 02:40 Respiratory Rate 18 11/02/22 02:40 Blood Pressure 156/88 H 11/02/22 02:40 Pulse Oximetry 98 11/02/22 02:40 Oxygen Delivery Method 11/02/22 02:40 MDM - Extremity Injury (Upper) MDM Narrative Medical decision making narrative: I suspect partial tearing or strain of the upper forearm musculature. Elbow xray for eval of possible avulsion fracture on my read appears negative for acute bony abn. ?bone island in lateral ulnar epicondylar area. for severe pain given 2 tabs of norco and ibuprofen in ED. arm sling. see patient discharge plan Discharge Plan Discharge Clinical Impression: Muscle strain of forearm Patient Disposition: Home w/ Parent or Adult Condition: Improved Additional Instructions: I do think you likely tore some muscle in your forearm to unclear degree. It appears as though your tendons are intact. I think further assessment though as needed. Hard to tell initially sometimes due to the degree of pain one is having. In the short term can take, with a little food up to 800 mg of ibuprofen per dose or up to 500 mg naproxen 2 times daily. Either can be combined with your prescribed [place] from [facility]. I would ice this inner elbow/upper forearm area as discussed using those screw top ice bags a few times daily over the next few days. Maybe some very gentle stretching. I would call tomorrow to make an appointment with Orthopedics or Sports Medicine, or with your primary if they have a particular interest in Orthopedics, for early to middle of next week. Phone number for Orthopedics is [phone]. Wear the arm sling for comfort at least over the next week. I will call you if there is more to discuss with your x-ray. Prescriptions: No Action lisinopril 20 mg tablet Follow Up/Referrals: Jama Natarajan MD [Primary Care Provider] - Stand Alone Forms: [employer] Info Instructions
== END 2022-11-02 03:05 | disposition home or self-care (01) ==
PROVIDERS: Emergency Provider Family Medicine; PCP Family Medicine
DX: S56.912A Strain of unspecified muscles, fascia and tendons at forearm level, left arm, initial encounter (principal); X50.0XXA Overexertion from strenuous movement or load, initial encounter
CPT/HCPCS: 73070; 99283; 99284; A9270

== ENCOUNTER 2024-04-11 17:17 | Emergency (ER) | payer OTHER, SELFPAY ==
[2024-04-11 17:33] VITALS: BP 114/77; PULSE 97; RESP 18; TEMP 37.8; O2SAT 97; BMI 52.9
--- NOTE | 2024-04-11 18:02 | CRLHL7_ITS ---
For Patients: As a result of the Cures Act, medical imaging exams and procedure reports are released immediately into your electronic medical record. You may view this report before your referring provider. If you have questions, please contact your health care provider. INDICATION: Cough. TECHNIQUE: Chest 2 views. COMPARISON: None. FINDINGS: Cardiovascular and mediastinum: Heart size and vasculature are normal in caliber and appearance. Lungs and pleural spaces: Low lung volumes. No sign of infiltrate or mass. No sign of pleural effusion. No pneumothorax. Bones and soft tissues: No significant findings. IMPRESSION: Low lung volumes. No acute or significant findings. Dictated by Teofilo Little MD @ 04/11/2024 6:51:04 PM (Electronically Signed)
--- NOTE | 2024-04-11 18:03 | ED.GENADULT ---
HPI - General Adult General Date Seen: 04/11/24 Chief complaint: Headache/Migraine Stated complaint: Poss meningitis, told to come back if not better Time Seen by Provider: 04/11/24 17:19 Source: patient and RN notes reviewed Mode of arrival: ambulatory Limitations: no limitations History of Present Illness HPI narrative: Patient is a 38-year-old who describes himself as generally healthy aside from being overweight, he tells me that about a month ago he was seen at the [facility] because he was feeling kind of poorly, he had been having some problems with headaches, fatigue, chills, diarrhea, he tells me he has had fevers on and off between 99-101. Initial evaluation by his report showed a white blood cell count that was elevated, he thinks maybe 15,000. It does not sound like much else was found but they did a CT scan because of the headaches which he says was normal. He says the person he saw a month ago told him that he had all the symptoms that could suggest meningitis and if he was not getting better he should be seen again. He did go back to clinic 6 days ago because of persistent headaches and continuing just to feel kind of off. The headaches he describes as being in the right posterior occipital region and he describes them as electric shock type pain, he will get a Zing and then his neck will feel like it is stiff. This happens intermittently, often while he is driving. He is had some occasional stomach pain that he attributes to heartburn nothing localized or significant. He continues to have a little bit of a cough and feels little short of breath. He has not had any vomiting or unusual rashes. He says he would have come in sooner but he went to [place] a couple weeks ago and then started reading about meningitis, saw how it was diagnosed and so he has been putting off coming in because he was concerned about possibly needing a lumbar puncture. Overall, he has had symptoms for about a month now. Related Data Home Medications ?Medication ?Instructions ?Recorded ?Confirmed lisinopril 20 mg tablet 20 mg PO DAILY 05/27/22 04/11/24 aspirin 81 mg chewable tablet 81 mg PO DAILY 04/11/24 04/11/24 (Aspirin Childrens) chlorthalidone 25 mg tablet 25 mg PO DAILY 04/11/24 04/11/24 Previous Rx's ?Medication ?Instructions ?Recorded gabapentin 300 mg capsule 300 mg PO BID #60 caps 04/11/24 prednisone 20 mg tablet 20 mg PO BID #10 tabs 04/11/24 Allergies Allergy/AdvReac Type Severity Reaction Status Date / Time No Known Drug Allergies Allergy Verified 04/11/24 17:41 Review of Systems Status of ROS: Reports: 10 or more systems reviewed and unremarkable except as noted in History and below [facility] Social History Smoking Status: Never smoker Do you use any of these nicotine containing products: None Second hand tobacco smoke exposure: No How often do you have a drink containing alcohol: monthly or less How often do you have six or more drinks on one occasion: Never AUDIT-C Alcohol total score: 1 Non-prescribed substance use: denies use service: No Exam Narrative: Exam Narrative: Vital signs as noted above. In general, an alert, well-appearing patient. He is overweight. Head: Normocephalic, atraumatic. He has a little bit of reproducible tenderness in the right occipital area although I am not able to reproduce the stabbing type pain. Eyes: Pupils are equal reactive. Extraocular movements are full. Conjunctivae are normal. ENT: Mucous membranes are moist. Throat is normal. Neck: Supple without lymphadenopathy. No meningeal signs. Heart: Regular rate and rhythm. No murmur or rub. Lungs: Clear bilaterally. No increased work of breathing, crackles or wheezes. Abdomen: Soft and nontender. No organomegaly. Extremities: Well perfused. No edema. No calf tenderness. Pulses intact. Neurologic: Patient is alert and oriented to person and place. Speech is fluent. Face is symmetric. Moves all extremities equally. Affect: Normal. Skin: Warm and dry. Well perfused. Const: Vital Signs, click to edit/add: Vital Signs - 24 hr 04/11/24 17:33 Temperature 100.0 F H Pulse Rate [Pulse Oximeter] 97 Respiratory Rate 18 Blood Pressure [Ri ght Upper Arm] 114/77 Pulse Oximetry 97 Oxygen Delivery Me thod Room Air Documenting provider has reviewed patient's vital signs: yes Course Course ED Course: Patient presents with a known diagnosis of mono and about a month's worth of somewhat nonspecific symptoms as well as right-sided occipital headache. Some features of this are suggestive of occipital neuralgia although I am not able to entirely reproduce his pain with palpation. I did order labs, his white blood cell count is normal at 9.4, diff is notable for a prominence of lymphocytes. Hemoglobin is very mildly decreased at 12.7. Electrolytes are normal LFTs are notable for mild transaminase elevation of an AST of 50 and an ALT of 69, unknown whether this might be related to his Doris Bar virus or fatty liver. CRP minimally elevated at 1.7. I did send a tick panel and a Lyme panel, patient informed me later in conversation with him that these have been checked and were negative any was actually started on doxycycline week ago although he did not fill it and started until 2 or 3 days ago. He has not noted any difference in his symptoms. I think it is probably reasonable at this time for him to discontinue that. Reviewed with him that nothing is suggestive of meningitis here at this time, and I do not think lumbar puncture is indicated. 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 I have recommended a trial of gabapentin for him and will give him a few days of prednisone as well. Discussed that if he is not improving he should be seen in clinic, a nerve block might be a reasonable thing to consider as well. If he is worsening, has severe uncontrolled pain, vomiting, rashes or other unusual symptoms return at any time. Otherwise, outpatient plan as described. Vital Signs Vital signs: Initial Vital Signs Temperature 100.0 F H 04/11/24 17:33 Temperature Source Temporal Artery Scan 04/11/24 17:33 Pulse Rate 97 04/11/24 17:33 Respiratory Rate 18 04/11/24 17:33 Blood Pressure 114/77 04/11/24 17:33 Blood Pressure Mean 89 04/11/24 17:33 Blood Pressure Position Sitting 04/11/24 17:33 Pulse Oximetry 97 04/11/24 17:33 Oxygen Delivery Method Room Air 04/11/24 17:33 Vital Signs Temperature 100.0 F H 04/11/24 17:33 Pulse Rate 97 04/11/24 17:33 Respiratory Rate 18 04/11/24 17:33 Blood Pressure 114/77 04/11/24 17:33 Pulse Oximetry 97 04/11/24 17:33 Oxygen Delivery Method Room Air 04/11/24 17:33 Temperature 100.0 F H 04/11/24 17:33 Pulse Rate 97 04/11/24 17:33 Respiratory Rate 18 04/11/24 17:33 Blood Pressure 114/77 04/11/24 17:33 Pulse Oximetry 97 04/11/24 17:33 Oxygen Delivery Method Room Air 04/11/24 17:33 Medical Decision Making Lab Data Labs: Lab Results 04/11/24 Range/Units 18:27 WBC 9.43 (4.50-11.00) K/uL RBC 4.52 (4.30-5.90) m/uL Hgb 12.7 L (13.5-17.5) gm/dL Hct 39.4 (37.0-53.0) % MCV 87 (80-100) fL MCH 28 (26-34) pg MCHC 32 (32-36) gm/dL RDW Coeff of Edna 16.1 H (11.5-15.5) % Plt Count 217 (140-440) K/uL Neut % (Auto) 33.5 L (42.0-72.0) % Lymph % (Auto) 57.4 H (20-44) % Nelson % (Auto) 5.8 (0.0-11.0) % Eos % (Auto) 2.1 (0.0-7.0) % Baso % (Auto) 0.8 (0.0-3.0) % Neut # (Auto) 3.20 (1.7-7.0) K/uL Lymph # (Auto) 5.40 H (0.90-2.90) K/uL Nelson # (Auto) 0.50 (0.00-0.90) K/UL Eos # (Auto) 0.20 (0.00-0.50) K/uL Baso # (Auto) 0.08 (0.00-0.30) K/uL Abs Immat Gran (auto) 0.04 (0.00-0.30) K/uL Imm/Tot Granulo (auto) 0.4 % Sodium 135 (135-149) mmol/L Potassium 3.9 (3.6-5.1) mmol/L Chloride 105 (96-114) mmol/L Carbon Dioxide 25 (20-32) mmol/L Anion Gap 5 L (7-15) mEq/L BUN 17 (5-24) mg/dL Creatinine 0.9 (0.5-1.5) mg/dL Estimated Creat Clear 119.75 Estimated GFR 111 ml/min Glucose 91 (60-115) mg/dL Lactate 0.9 (0.5-1.9) mmol/L Calcium 8.5 (8.4-10.6) mg/dL Total Bilirubin 1.0 (0.1-1.5) mg/dL Direct Bilirubin 0.4 (0.0-0.5) mg/dL AST 50 H (12-35) U/L ALT 69 H (4-50) U/L Alkaline Phosphatase 68 (40-150) U/L C-Reactive Protein 1.7 H (0.5-1.0) mg/dL Total Protein 6.7 (6.0-8.3) g/dL Albumin 3.6 (3.3-5.0) g/dL Discharge Plan Discharge Clinical Impression: Occipital headache, Mononucleosis Patient Disposition: Home, Self-Care Condition: Stable Instructions: Mononucleosis (ED), General Headache (ED) Additional Instructions: You can use ibuprofen or Tylenol if needed. Prednisone as prescribed. Trial of gabapentin as prescribed. If you are not improving over the next few days to week, I would recommend clinic follow-up for further discussion of management of your occipital headache. Some features of this are suggestive of occipital neuralgia. I do not have reason to suspect meningitis at this time. Prescriptions: New gabapentin 300 mg capsule 300 mg PO BID Qty: 60 2RF prednisone 20 mg tablet 20 mg PO BID Qty: 10 0RF No Action lisinopril 20 mg tablet 20 mg PO DAILY chlorthalidone 25 mg tablet 25 mg PO DAILY aspirin [Aspirin Childrens] 81 mg tablet,chewable 81 mg PO DAILY Follow Up/Referrals: Jama Natarajan MD [Primary Care Provider] - Stand Alone Forms: [employer] Info Instructions
--- OUTSIDE RECORDS SUMMARY | 2024-04-11 18:11 | XMS_ITS | Clinical Summary ---
Author Organization [facility] Address [place], [place] [address] Care Team Providers Care Clay Pigeon Setter Name Role Phone Votel, Jama Bonilla MD Primary Care Provider + Allergies No known active allergies Medications Medication Sig Dispensed Refills Start Date End Date Status multivitamin (MVI) tablet Take 1 tablet by mouth once daily. 0 07/08/2010 Active Cranberry 400 mg capsule Take by mouth. 0 07/22/2021 Active fexofenadine (SUYAPA) 180 mg tablet Take 180 mg by mouth once daily. Do not crush or chew. 0 07/22/2021 Active aspirin 81 mg cap Take 81 mg by mouth. Active CPAPIndications:ANANYA (obstructive sleep apnea) CPAP machine for home use at pressure 10 cmw epr of 2, nasal mask x1/3month with nasal cushion x2/mo 1 Each 11 08/19/2021 Active chlorthalidone (HYGROTON) 25 mg tabletIndications:H TN (hypertension) Take 1 Tablet (25 mg) by mouth once daily. 90 Tablet 3 09/27/2023 Active lisinopriL (PRINIVIL; ZESTRIL) 20 mg tabletIndications:H TN (hypertension) Take 1 Tablet (20 mg) by mouth once daily. 90 Tablet 3 09/27/2023 Active ketoconazole 2% topical (NIZORAL) creamIndications:In tertrigo Apply topically to affected area(s) two times daily. 60 g 2 09/27/2023 Active doxycycline 100 mg capsuleIndications: Fever, unspecified fever cause,Headache syndrome Take 1 Capsule (100 mg) by mouth two times daily for 10 days. 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 01/29/2009 ANANYA 08/22/2008 AHI-63 09/01/2008 Tear film insufficiency, unspecified 06/11/2008 Encounters Date Type Department Care Team Description 04/05/2024 1:00 PM CDT Ancillary Procedure [facility] [address] [place] [address] 04/05/2024 11:05 AM CDT Office Visit [facility] [address] [place] [address] Duyen Evans PA [employer] 04/05/2024 Travel 03/13/2024 3:45 PM CDT Office Visit [facility] [address] [place] [address] Jama Natarajan MD Blood Pressure; Musculoskeletal Problem (Foot pain, bottom of feet hurt, bilateral heel pain, x 3 week) 03/13/2024 Travel from Last 3 Months Immunizations Name Administration Dates Next Due Influenza, IIV3 (Age >=3 years) 07/08/2010 Td (Age >=7 Years) 12/03/1997 Td, Preservative Free (age >= 7 Years) Tdap 12/16/2009 Family History Medical History Relation Name Comments Good Health Brother 3 Good Health Father borderline diab etes Good Health Mother Good Health Sister 2 Relation Name Status Comments Brother 1 (Age 27) car accide nt Brother 2 Alive Brother 3 Father Alive Mother Alive Sister 1 Alive Sister 2 Social History Tobacco Use Types Packs/Day Years Used Date Smoking Tobacco: Never Smokeless Tobacco: Former Chew Tobacco Cessation:Counseling Given: Yes Alcohol Use Standard Drinks/Week Comments Yes 0 (1 standard drink = 0.6 oz pur e alcohol) occasional PHQ-2 Answer Date Recorded PHQ-2 TOTAL SCORE 0 09/27/2023 Social Connections Answer Date Recorded Frequency of Communication with Friends and Fami ly 0 03/13/2024 Financial Resource Strain Answer Date R ecorded Difficulty of Paying Living Expenses 3 03/13/2024 Difficulty of Paying Living Expenses Not on file 03/13/2024 Food Insecurity Answer Date Recorded Worried About Running Out of Food in the Last Ye ar 1 03/13/2024 Transportation Needs Answer Date Record ed Lack of Transportation (Medical) 1 03/13/2024 Housing Stability Answer Date Recorded Unable to Pay for Housing in the Last Year 1 03/13/2024 Sex and Gender Information Value Date Recorded Sex Assigned at Not on file Gender Identity Not on file Sexual Orientation Not on file Obstetrics History Last Filed Vital Signs Vital Sign Reading Time Taken Comments Blood Pressure 123/60 04/05/2024 11:09 AM CDT Pulse 106 04/05/2024 11:09 AM CDT Temperature 36.8 ??C (98.3 ??F) 04/05/2024 1 1:09 AM CDT Respiratory Rate 16 02/12/2023 2:31 PM CDT Oxygen Saturation 97% 04/05/2024 11: 09 AM CDT Inhaled Oxygen Concentration - - Weight 185.8 kg (409 lb 9.6 oz) 024 11:09 AM CDT Height 175.8 cm (5' 9.2) 03/13/2024 3:48 PM CDT Body Mass Index 60.14 03/13/2024 3:48 PM CDT Plan of Treatment Upcoming Encounters Date Type Department Care Team (Late st Contact Info) Description 04/18/2024 4:35 PM CDT Office Visit [facility] [address] [place] [address] Votel, Jama Bonilla MD [address] [place] [address] Health Maintenance Due Date Last Done Comments HIV for age 15-65 11/04/1998 Hepatitis C screening for age 18-79 11/04/2001 COVID-19 vaccine series ( season) 2023 Influenza for age 9-49 04/21/2024 07/08/2010 Depression screening for age 12+ 09/27/2024 09/27/2023, 10/20/2022, 08/19/2021, Additional history exists BMI (ht and wt on same day) for age 18+ 03/13/2025 03/13/2024, 09/27/2023, 02/28/2023, Additional history exists Lipids for age 35-44 09/27/2028 09/27/2023, 10/20/2022, 10/20/2016, Additional history exists Tetanus booster 10/20/2032 10/20/2022, 11/20, 12/03/1997 Tdap Completed 12/16/2009 Pneumococcal series for age 6-64 Aged Out No longer eligible based on patient's age to complete this topic Procedures Procedure Name Priority Date/Time Associated Diagnosis Comments CT HEAD BRAIN WO STAT 04/05/2024 12:1 5 PM CDT Fever, unspecified fever cause Headache syndrome CWS PATH REVIEW HEMATOLOGY STAT 04/05/2024 12:07 PM CDT Fever, unspecified fever cause Headache syndrome RED CELL MORPHOLOGY STAT 04/05/2024 1 2:07 PM CDT Fever, unspecified fever cause Headache syndrome PLATELET ESTIMATE STAT 04/05/2024 12: 07 PM CDT Fever, unspecified fever cause Headache syndrome MANUAL DIFFERENTIAL STAT 04/05/2024 1 2:07 PM CDT Fever, unspecified fever cause Headache syndrome HETEROPHILE Add On 04/05/2024 12:07 PM CDT Infectious mononucleosis without complication, infectious mononucleosis due to unspecified organism CBC WITH AUTO DIFFERENTIAL STAT 04/05/2024 12:07 PM CDT Fever, unspecified fever cause Headache syndrome ANAPLASMA EHRLICHIA DETECTION PCR STAT 04/05/2024 12:07 PM CDT Fever, unspecified fever cause Headache syndrome BABESIA MICROTI JAN IGG IGM PANEL STAT 04/05/2024 12:07 PM CDT Fever, unspecified fever cause Headache syndrome ANAPLASMA EHRLICHIA JAN PANEL STAT 04/05/2024 12:07 PM CDT Fever, unspecified fever cause Headache syndrome LYME SCREEN W/REFLEX STAT 04/05/2024 12:07 PM CDT Fever, unspecified fever cause Headache syndrome C-REACTIVE PROTEIN STAT 04/05/2024 12 :07 PM CDT Fever, unspecified fever cause Headache syndrome SEDIMENTATION RATE STAT 04/05/2024 12 :07 PM CDT Fever, unspecified fever cause Headache syndrome CBC WITH AUTO DIFFERENTIAL STAT 04/05/2024 12:07 PM CDT Fever, unspecified fever cause Headache syndrome COVID-19 MOLECULAR STAT 04/05/2024 11 :46 AM CDT Fever, unspecified fever cause Headache syndrome EKG 12 LEAD Routine 03/18/2024 10:34 AM CDT Chest pain in adult IN READING EKG - NO CHARGE, COMP ONLY Routine 03/18/2024 10:33 AM CDT Chest pain in adult COMP METABOLIC PANEL Routine 03/13/2024 5:10 PM CDT [place] TSH Routine 03/13/2024 5:10 PM CDT [place] CBC W PLT NO DIFF Routine 03/13/2024 5:1 0 PM CDT [place] LIPID PANEL W REFLEX MEASURED LDL Routine 09/27/2023 9:44 AM TEST PREPARER HTN (hypertension) from Last 3 Months or Most Recently Relevant to Health Maintenance Results * CT HEAD BRAIN WO (04/05/2024 12:15 PM CDT) Anatomical Region Laterality Modality HEAD, BRAIN Computed Tomogra phy 04/05/2024 12:2 7 PM CDT Impressions 04/05/2024 12:27 PM CDT No acute intracranial abnormality. Dictated by Kevin Crocker MD @ 04/05/2024 12:27:39 PM Please note that all CT scans at this facility use dose modulation, iterative reconstruction, and/or weight-based dosing when appropriate to reduce radiation dose to as low as reasonably achievable. Dictated by: Kevin Crocker MD @ 04/05/2024 12:27:48 (Electronically Signed) Narrative 04/05/2024 12:27 PM CDT For Patients: ??As a result of the Cures Act, medical imaging exams and procedure reports are released immediately into your electronic medical record. ??You may view this report before your referring provider. ??If you have questions, please contact your health care provider. INDICATION: Fever. Headache. TECHNIQUE: CT head without contrast. COMPARISON: None. FINDINGS: There is no mass effect or midline shift. No hydrocephalus. No CT evidence of acute hemorrhage or infarction. No abnormal extra-axial fluid collection. Bone windows show no acute calvarial fracture. Paranasal sinuses and orbits as imaged are unremarkable. ?? Procedure Note Kevin Crocker, DO - 04/05/2024 For Patients: As a result of the Cures Act, medical imagingexams and procedure reports are released immediately into your electronicmedical record. You may view this report before your referring provider.If you have questions, please contact your health care provider. INDICATION: Fever. Headache. TECHNIQUE: CT head without contrast. COMPARISON: None. FINDINGS: There is no mass effect or midline shift. No hydrocephalus. No CT evidenceof acute hemorrhage or infarction. No abnormal extra-axial fluidcollection. Bone windows show no acute calvarial fracture. Paranasalsinuses and orbits as imaged are unremarkable. IMPRESSION: No acute intracranial abnormality. Dictated by Kevin Crocker MD @ 04/05/2024 12:27:39 PM Please note that all CT scans at this facility use dose modulation,iterative reconstruction, and/or weight-based dosing when appropriate toreduce radiation dose to as low as reasonably achievable. Dictated by: Kevin Crocker MD @ 04/05/2024 12:27:48 (Electronically Signed) Duyen MARIANO CT * CWS PATH REVIEW HEMATOLOGY (04/05/2024 12:07 PM CDT) PATH COMMENT Reviewed by BB on 04/08/2024 04/09/2024 11:07 AM CDT [facility] Blood BLOOD SPECIMEN / Unknown Venipuncture / Unknown 04/05/2024 12:07 PM CDT 04/05/2024 12:09 PM CDT Duyen MARIANO LABORATORY [facility] [address] [place] [address], * (ABNORMAL) SEDIMENTATION RATE (04/05/2024 12:07 PM CDT) [facility] SEDIMENTATION RATE 18(H) <15 mm/hr 2023 5:49 PM CDT [facility] Blood BLOOD SPECIMEN / Unknown Venipuncture / Unknown 04/05/2024 12:07 PM CDT 04/05/2024 12:09 PM CDT Duyen MARIANO HEMATOLOGY [facility] [address] [place] [id number] * ANAPLASMA EHRLICHIA JAN PANEL (04/05/2024 12:07 PM CDT) E chaffeensis (HME) IgG Titer Negative Neg:<1:64 04/08/2024 3:09 PM CDT [facility] ([facility]) E chaffeensis (HME) IgM Titer Negative Neg:<1:20 04/08/2024 3:09 PM CDT [facility] ([facility]) A. PHAGOCYTOPHILUM IGG Negative Neg:<1:64 04/08/2024 3:09 PM CDT [facility] ([facility]) A. PHAGOCYTOPHILUM IGM Negative Neg:<1:20 04/08/2024 3:09 PM CDT [facility] ([facility]) Comment: Due to a reagent backorder, this test was performed using a different assay. The reference interval for this alternate assay is: ? Negative ?<1:64 ? Positive ? 1:64 or greater RESULT COMMENT EHRLICHIA JAN Comment 04/08/2024 3:09 PM CDT [facility] ([facility]) Comment: Antibody titers may be negative in the first 7-10 days of illness. A four-fold rise in IgG antibody titers for Anaplasma phagocytophilum and/or Ehrlichia chaffeensis in paired samples (acute and convalescent) supports the diagnosis of anaplasmosis and/or ehrlichiosis, respectively. Blood BLOOD SPECIMEN / Unknown Venipuncture / Unknown 04/05/2024 12:07 PM CDT 04/05/2024 12:09 PM CDT Narrative [facility] ([facility]) - 04/08/2024 3:09 PM CDT Performed at: ??01 - [facility] [address] [place] [address] ??[id number] Transport Company Manager: Rin Trinidad MD, Phone: ??[phone] Duyen MARIANO SEND OUTS [facility] ([facility]) [address] [place] [address], * ANAPLASMA EHRLICHIA DETECTION PCR (04/05/2024 12:07 PM CDT) A phagocytophilum PCR Negative Negative 04/10/2024 8:11 AM CDT [facility] ([facility]) Comment: No Anaplasma phagocytophilum DNA detected. ??A. phagocytophilum has been characterized as the causative agent of Human Granulocytic Ehrlichiosis (HGE). Ehrlichia chaffeensis PCR Negative Negative 04/10/2024 8:11 AM CDT [facility] ([facility]) Comment: No Ehrlichia chaffeensis DNA detected. ??E. chaffeensis has been characterized as the causative agent of Human Monocytic Ehrlichiosis (HME). Blood BLOOD SPECIMEN / Unknown Venipuncture / Unknown 04/05/2024 12:07 PM CDT 04/05/2024 12:09 PM CDT Narrative [facility] ([facility]) - 04/10/2024 8:11 AM CDT Test(s) 300537-Q. phagocytophilum PCR; 922803- Ehrlichia chaffeensis PCR was developed and its performance characteristics determined by [facility]. It has not been cleared or approved by the Food and Drug Administration. Performed at: ??01 - [address] ??[id number] Transport Company Manager: Rin Trinidad MD, Phone: ??[phone] Duyen MARIANO SEND OUTS [facility] ([facility]) [address] [place] [address], * BABESIA MICROTI JAN IGG IGM PANEL (04/05/2024 12:07 PM CDT) B microti IgG <1:10 Neg:<1:10 04/09/2024 12:08 PM CDT [facility] ([facility]) B microti IgM <1:10 Neg:<1:10 04/09/2024 12:08 PM CDT [facility] ([facility]) RESULT COMMENT BABESIA MICROTI JAN Comment 04/09/2024 12:08 PM CDT [facility] ([facility]) Comment: Diagnosis of acute babesiosis cannot be confirmed solely by the presence of antibody in a serum sample collected at a single time point. Babesia microti (B. microti) IgG antibody titers >=1:1024 and/or a positive B. microti IgM antibody IFA result are suggestive of active or recent B. microti infection. PCR or peripheral blood smear should be considered to confirm acute infection. Blood BLOOD SPECIMEN / Unknown Venipuncture / Unknown 04/05/2024 12:07 PM CDT 04/05/2024 12:09 PM CDT Narrative [facility] ([facility]) - 04/09/2024 12:08 PM CDT Test(s) 167364-Morhulu microti IgG; [id number]-Wsqpbwh microti IgM was developed and its performance characteristics determined by [facility]. It has not been cleared or approved by the Food and Drug Administration. Performed at: ??01 - [address] ??[id number] Transport Company Manager: Rin Trinidad MD, Phone: ??[phone] Duyen MARIANO SEND OUTS [facility] ([facility]) [address] [place] [address], * (ABNORMAL) CBC WITH AUTO DIFFERENTIAL (04/05/2024 12:07 PM CDT) Pathologist [facility] WHITE BLOOD COUNT 12.2(H) 4.5 - 11.0 thou/cu mm 04/05/2024 11:10 PM CDT [facility] RED BLOOD COUNT 5.05 4.30 - 5.90 mil/cu mm 04/05/2024 11:10 PM CDT [facility] HEMOGLOBIN 14.5 13.5 - 17.5 g/dL 04/05/2024 11:10 PM CDT [facility] HEMATOCRIT 43.2 37.0 - 53.0 % 04/05/2024 11:10 PM CDT [facility] MCV 86 80 - 100 fL 04/05/2024 11:10 PM CDT [facility] MCH 28.7 26.0 - 34.0 pg 04/05/2024 11:10 PM CDT [facility] MCHC 33.6 32.0 - 36.0 g/dL 04/05/2024 11:10 PM CDT [facility] RDW 16.8(H) 11.5 - 15.5 % 04/05/2024 11:10 PM CDT [facility] PLATELET COUNT 258 140 - 440 thou/cu mm 04/05/2024 11:10 PM CDT [facility] MPV 8.3 6.5 - 11.0 fL 04/05/2024 11:10 PM CDT [facility] Blood BLOOD SPECIMEN / Unknown Venipuncture / Unknown 04/05/2024 12:07 PM CDT 04/05/2024 12:09 PM CDT Duyen MARIANO HEMATOLOGY [facility] [address] [place] [address], [facility] [address] [place] [address], * (ABNORMAL) RED CELL MORPHOLOGY (04/05/2024 12:07 PM CDT) POLYCHROMASIA Slight 04/05/2024 11:10 PM CDT [facility] RBC COMMENT Present(A) RBC morphology appears normal, RBC morphology within normal limits for newborns. 04/05/2024 11:10 PM CDT [facility] WBC REACTIVE LYMPHS Present 04/05/2024 11:10 PM CDT [facility] Blood BLOOD SPECIMEN / Unknown Venipuncture / Unknown 04/05/2024 12:07 PM CDT 04/05/2024 12:09 PM CDT Duyen MARIANO HEMATOLOGY [facility] [address] [place] [id number], [place] * PLATELET ESTIMATE (04/05/2024 12:07 PM CDT) PLATELET ESTIMATE Adequate Adequate, No estimate 04/05/2024 11:10 PM CDT [facility] Blood BLOOD SPECIMEN / Unknown Venipuncture / Unknown 04/05/2024 12:07 PM CDT 04/05/2024 12:09 PM CDT Duyen MARIANO HEMATOLOGY [facility] [address], [place] [address], [place] * (ABNORMAL) MANUAL DIFFERENTIAL (04/05/2024 12:07 PM CDT) % NEUTROPHILS 42.3 % 04/05/2024 11:10 PM CDT [facility] % LYMPHOCYTES 43.1 % 04/05/2024 11:10 PM CDT [facility] % MONOCYTES 10.2 % 04/05/2024 11:10 PM CDT [facility] % EOSINOPHILS 3.7 % 04/05/2024 11:10 PM CDT [facility] % BASOPHILS 0.7 % 04/05/2024 11:10 PM CDT [facility] NEUTROPHILS ABSOLUTE 5.2 1.7 - 7.0 thou/cu mm 04/05/2024 11:10 PM CDT [facility] LYMPHOCYTES ABSOLUTE 5.3(H) 0.9 - 2.9 thou/cu mm 04/05/2024 11:10 PM CDT [facility] MONOCYTES ABSOLUTE 1.2(H) <0.9 thou/cu mm 04/05/2024 11:10 PM CDT [facility] EOSINOPHILS ABSOLUTE 0.5(H) <0.5 thou/cu mm 04/05/2024 11:10 PM CDT [facility] BASOPHILS ABSOLUTE 0.1 <0.3 thou/cu mm 04/05/2024 11:10 PM CDT [facility] Blood BLOOD SPECIMEN / Unknown Venipuncture / Unknown 04/05/2024 12:07 PM CDT 04/05/2024 12:09 PM CDT Duyen MARIANO HEMATOLOGY Performing Organization Address [facility] Co de Phone Number [facility] [address] [place] [address], * LYME SCREEN W/REFLEX (04/05/2024 12:07 PM CDT) LYME SCREEN W/REFLEX Negative Negative 04/06/2024 9:40 AM CDT [facility] Comment: No laboratory evidence of infection with B. burgdorferi (Lyme disease). Negative results may occur in patients recently infected (less than or equal to 14 days) with B. burgdorferi. If recent infection is suspected, repeat testing on a new sample collected in 7-14 days is recommended. Blood BLOOD SPECIMEN / Unknown Venipuncture / Unknown 04/05/2024 12:07 PM CDT 04/05/2024 12:09 PM CDT Duyen MARIANO SEND OUTS Performing Organization Address City/[facility]/ZIP Co de Phone Number [facility] [address] [place] [address], * (ABNORMAL) HETEROPHILE (04/05/2024 12:07 PM CDT) HETEROPHILE Positive(A ) Negative 04/05/2024 1:18 PM CDT [facility] Blood BLOOD SPECIMEN / Unknown Venipuncture / Unknown 04/05/2024 12:07 PM CDT 04/05/2024 12:09 PM CDT Duyen MARIANO HEMATOLOGY [facility] [address] [place] [address], [place] [phone] * (ABNORMAL) C-REACTIVE PROTEIN (04/05/2024 12:07 PM CDT) Pathologist [facility] C-REACTIVE PROTEIN 3.3(H) <0.5 mg/dL 04/05/2024 11:56 PM CDT [facility] Blood BLOOD SPECIMEN / Unknown Venipuncture / Unknown 04/05/2024 12:07 PM CDT 04/05/2024 12:09 PM CDT Duyen MARIANO CHEMISTRY Performing Organization Address City/[facility]/ZIP Co de Phone Number [facility] [address], [place] [address], [place] * COVID-19 MOLECULAR (04/05/2024 11:46 AM CDT) Pathologist [facility] COVID 19 [place] MOLECULAR Negative Negative 04/06/2024 2:24 AM CDT [facility] TEST[facility] LABORATORY [facility] 04/06/2024 2:24 AM CDT [facility] Comment:Specimen submitted t o [facility] for testing. Other SPECIMEN FROM NASAL FOSSAE / Unknown Non-Blood / Unknown 04/05/2024 11:46 AM CDT 04/05/2024 11:52 AM CDT Narrative [facility] - 04/06/2024 2:24 AM CDT All PCR tests are subject to false negative result due to variability in viral load and collection technique. A negative result does not rule out a SARS-CoV-2 infection. Clinical correlation required. Duyen MARIANO MICROBIOLOGY [facility] [address] [place] [address], [place] * EKG 12 LEAD (03/18/2024 10:34 AM CDT) Jama Natarajan MD EKG ORD * IN READING EKG - NO CHARGE, COMP ONLY (03/18/2024 10:33 AM CDT) Jama Natarajan MD PB - PROVIDER RE ADINGS * TSH (03/13/2024 5:10 PM CDT) TSH 0.38 0.27 - 4.20 uIU/mL 03/14/2024 3:50 PM CDT [facility] Blood BLOOD SPECIMEN / Unknown Venipuncture / Unknown 03/13/2024 5:10 PM CDT 03/13/2024 5:20 PM CDT Narrative [facility] - 03/14/2024 3:50 PM CDT In Adults, TSH values between 5.00 and 10.00 uIU/ml do not necessarily indicate the presence of Hypothyroidism. Correlation with clinical findings such as presence of goiter and/or Thyroperoxidase (TPO) Antibody may be helpful. For more information please refer to JESSICA 2004; 291: 228-238. Jama Natarajan MD CHEMISTRY [facility] [address] [place] [address], * (ABNORMAL) CBC W PLT NO DIFF (03/13/2024 5:10 PM CDT) WHITE BLOOD COUNT 15.8(H) 4.5 - 11.0 thou/cu mm 03/13/2024 5:25 PM CDT [facility] RED BLOOD COUNT 5.25 4.30 - 5.90 mil/cu mm 03/13/2024 5:25 PM CDT [facility] HEMOGLOBIN 15.0 13.5 - 17.5 g/dL 03/13/2024 5:25 PM CDT [facility] HEMATOCRIT 45.3 37.0 - 53.0 % 03/13/2024 5:25 PM CDT [facility] MCV 86 80 - 100 fL 03/13/2024 5:25 PM CDT [facility] MCH 28.6 26.0 - 34.0 pg 03/13/2024 5:25 PM CDT [facility] MCHC 33.1 32.0 - 36.0 g/dL 03/13/2024 5:25 PM CDT [facility] RDW 15.4 11.5 - 15.5 % 03/13/2024 5:25 PM CDT [facility] PLATELET COUNT 290 140 - 440 thou/cu mm 03/13/2024 5:25 PM CDT [facility] MPV 8.9 6.5 - 11.0 fL 03/13/2024 5:25 PM CDT [facility] Blood BLOOD SPECIMEN / Unknown Venipuncture / Unknown 03/13/2024 5:10 PM CDT 03/13/2024 5:20 PM CDT Jama Natarajan MD HEMATOLOGY [facility] [address] [place] [address], * (ABNORMAL) COMP METABOLIC PANEL (03/13/2024 5:10 PM CDT) SODIUM 137 136 - 145 mmol/L 03/14/2024 3:50 PM CDT [facility] POTASSIUM 4.5 3.5 - 5.1 mmol/L 03/14/2024 3:50 PM CDT [facility] CHLORIDE 102 98 - 107 mmol/L 03/14/2024 3:50 PM CDT [facility] CO2,TOTAL 23 22 - 29 mmol/L 03/14/2024 3:50 PM CDT [facility] ANION GAP 12 5 - 18 03/14/2024 3:50 PM CDT [facility] GLUCOSE 105(H) 70 - 99 mg/dL 03/14/2024 3:50 PM CDT [facility] CALCIUM 9.8 8.6 - 10.0 mg/dL 03/14/2024 3:50 PM CDT [facility] BUN 20 6 - 20 mg/dL 03/14/2024 3:50 PM CDT [facility] [facility] CREATININE 0.89 0.70 - 1.20 mg/dL 03/14/2024 3:50 PM CDT [facility] BUN/CREAT RATIO 22(H) 10 - 20 3:50 PM CDT [facility] eGFR >90 >90 mL/min/1.7 3m2 03/14/2024 3:50 PM CDT [facility] Comment:As of 2021, eG FR is calculated by the CKD-EPI creatinine equation without race adjustment. ??eGFR can be influenced by muscle mass, exercise, and diet. ??The reported eGFR is an estimation only and is only applicable if the renal function is stable. ALBUMIN 4.7 4.0 - 4.9 g/dL 03/14/2024 3:50 PM CDT [facility] PROTEIN,TOTAL 8.2(H) 6.0 - 8.0 g/dL 03/14/2024 3:50 PM CDT [facility] BILIRUBIN,TOTAL 0.5 0.0 - 1.2 mg/dL 03/14/2024 3:50 PM CDT [facility] ALK PHOSPHATASE 64 40 - 129 IU/L 03/14/2024 3:50 PM CDT [facility] ALT (SGPT) 40 10 - 50 IU/L 03/14/2024 3:50 PM CDT [facility] AST (SGOT) 34 10 - 50 IU/L 03/14/2024 3:50 PM CDT [facility] Blood BLOOD SPECIMEN / Unknown Venipuncture / Unknown 03/13/2024 5:10 PM CDT 03/13/2024 5:20 PM CDT Jama Natarajan MD CHEMISTRY [facility] [address] [place] [address], * LIPID PANEL W REFLEX MEASURED LDL (09/27/2023 9:44 AM TEST PREPARER) CHOLESTEROL,TOTAL 140 100 - 199 mg/dL 09/27/2023 5:51 PM TEST PREPARER [facility] Comment: Cholesterol, Total Reference Ranges Desirable <200 mg/dL Borderline 200-239 mg/dL High >=240 mg/dL TRIGLYCERIDES 129 <150 mg/dL 09/27/2023 5:51 PM TEST PREPARER [facility] HDL CHOLESTEROL 45 >40 mg/dL 5:51 PM TEST PREPARER [facility] NON-HDL CHOLESTEROL 95 <145 mg/dl 09/27/2023 5:51 PM TEST PREPARER [facility] CHOL/HDL RATIO 3.11 <4.50 09/27/2023 5:51 PM TEST PREPARER [facility] LDL CHOLESTEROL 69 <=130 mg/dL 09/27/2023 5:51 PM TEST PREPARER [facility] VLDL CHOLESTEROL 26 <=30 mg/dL 09/27/2023 5:51 PM TEST PREPARER [facility] PROVIDER ORDERED STATUS RANDOM 09/27/2023 5:51 PM TEST PREPARER [facility] Blood BLOOD SPECIMEN / Unknown Venipuncture / Unknown 09/27/2023 9:44 AM TEST PREPARER 09/27/2023 9:47 AM TEST PREPARER Jama Natarajan MD CHEMISTRY [facility] [address] [place] [address], from Last 3 Months or Most Recently Relevant to Health Maintenance Care Teams Clay P[employer]on Setter Relationship Specialty Start Date End Date Votel, Jama Bonilla MD [address] [place] [address] PCP - General Family Practice 02/28/23
[2024-04-11 18:28] LABS: Lactate Sepsis w/Reflex* 0.9 mmol/L (0.5-1.9)
[2024-04-11 18:30] LABS: Basophils Absolute Auto 0.08 K/uL (0.00-0.30); Basophils Percent Auto 0.8 % (0.0-3.0); Eosinophils Percent Auto 2.1 % (0.0-7.0); Hematocrit 39.4 % (37.0-53.0); Hemoglobin* 12.7 gm/dL (13.5-17.5); Immature Granulocytes Abs Auto 0.04 K/uL (0.00-0.30); Immature Granulocytes Pct Auto 0.4 %; Lymphocytes Percent Auto 57.4 % (20-44); Mean Corpuscular HGB Conc 32 gm/dL (32-36); Mean Corpuscular Hemoglobin 28 pg (26-34); Mean Corpuscular Volume 87 fL (80-100); Monocytes Percent Auto 5.8 % (0.0-11.0); Neutrophils Percent Auto 33.5 % (42.0-72.0); Platelet Count* 217 K/uL (140-440); RDW Coefficient of Variation % 16.1 % (11.5-15.5); Red Blood Count 4.52 m/uL (4.30-5.90); White Blood Count* 9.43 K/uL (4.50-11.00)
[2024-04-11 18:43] LABS: Slide Review Reflex No
[2024-04-11 18:48] LABS: Albumin* 3.6 g/dL (3.3-5.0); Chloride* 105 mmol/L (96-114)
[2024-04-11 18:49] LABS: Potassium* 3.9 mmol/L (3.6-5.1); Sodium* 135 mmol/L (135-149)
[2024-04-11 18:51] LABS: Anion Gap 5 mEq/L (7-15); Aspartate Amino Transferase* 50 U/L (12-35); Bilirubin Direct* 0.4 mg/dL (0.0-0.5); Carbon Dioxide* 25 mmol/L (20-32); Creatinine* 0.9 mg/dL (0.5-1.5); Est. Creatinine Clearance* 119.75; Estimated Glomerular Filt Rate 111 ml/min; Total Protein* 6.7 g/dL (6.0-8.3)
[2024-04-11 18:52] LABS: Alanine Aminotransferase* 69 U/L (4-50); Alkaline Phosphatase* 68 U/L (40-150); Blood Urea Nitrogen* 17 mg/dL (5-24); Calcium* 8.5 mg/dL (8.4-10.6); Glucose* 91 mg/dL (60-115)
[2024-04-11 19:11] LABS: C Reactive Protein* 1.7 mg/dL (0.5-1.0)
[2024-04-15 08:53] LABS: Anaplasma phagocyt PCR Not Detected; Babesia microti by PCR Not Detected; Babesia species by PCR Not Detected; Ehrlichia chaffeensis by PCR Not Detected; Ehrlichia ewingii/canis by PCR Not Detected; Ehrlichia muris-like by PCR Not Detected
== END 2024-04-11 19:38 | disposition home or self-care (01) ==
PROVIDERS: Emergency Provider Emergency Medicine; PCP Family Medicine
DX: R51.9 Headache, unspecified (principal); B27.90 Infectious mononucleosis, unspecified without complication
CPT/HCPCS: 36415; 71046; 80048; 80076; 83605; 85025; 86140; 86618; 87468; 87469; 87484; 87798; 99284

== ENCOUNTER 2024-06-19 22:50 | Emergency (ER) | payer OTHER, SELFPAY ==
[2024-06-19 23:13] VITALS: BP 133/84; PULSE 89; RESP 16; TEMP 37.1; O2SAT 96; BMI 50.9
--- NOTE | 2024-06-19 23:57 | ED_ITS ---
HPI - General Adult General Time Seen by Provider: 23:58 Date Seen: 06/19/24 Chief complaint: Ear/Nose/Throat Problem Stated complaint: Right ear pain Time Seen by Provider: 06/19/24 23:57 Source: patient, RN notes reviewed and old records reviewed Mode of arrival: ambulatory Limitations: no limitations History of Present Illness HPI narrative: 38-year-old male who presents today with your pain. Patient reports about 3 weeks of upper respiratory symptoms, today decreased hearing and episode of intense pain tonight, feels better now. Patient notes ongoing cough, nasal congestion and postnasal drip. Has been taking NyQuil at night for this. Some shortness of breath with activity, no chest pain, no nausea, vomiting, or diarrhea. Does have some body aches. Related Data Home Medications ?Medication ?Instructions ?Recorded ?Confirmed lisinopril 20 mg tablet 20 mg PO DAILY 05/27/22 06/19/24 aspirin 81 mg chewable tablet 81 mg PO DAILY 04/11/24 06/19/24 (Aspirin Childrens) chlorthalidone 25 mg tablet 25 mg PO DAILY 04/11/24 06/19/24 Previous Rx's ?Medication ?Instructions ?Recorded gabapentin 300 mg capsule 300 mg PO BID #60 caps 04/11/24 prednisone 20 mg tablet 20 mg PO BID #10 tabs 04/11/24 fluticasone propionate 50 1 spray intranasal BID #16 grams 06/20/24 mcg/actuation nasal spray,suspension (Flonase Allergy Relief) Allergies Allergy/AdvReac Type Severity Reaction Status Date / Time No Known Drug Allergies Allergy Verified 06/19/24 23:19 PFSH PFS Social History Smoking Status: Never smoker Do you use any of these nicotine containing products: None Second hand tobacco smoke exposure: No How often do you have a drink containing alcohol: monthly or less How often do you have six or more drinks on one occasion: Never AUDIT-C Alcohol total score: 1 Non-prescribed substance use: denies use service: No Exam Narrative: Exam Narrative: General: Well-developed and well-nourished, no acute distress Head: Atraumatic and normocephalic Eyes: Pupils are equal reactive, extraocular motions intact, conjunctiva clear ENT: External nose and ears are normal, posterior pharynx without erythema or exudate. Right tympanic membrane is red and bulging with erythema and swelling of the external auditory canal, left tympanic membrane bulging Neck: No midline cervical tenderness, full spontaneous range of motion the neck, trachea midline, no adenopathy Heart: Regular rate and rhythm no murmurs or thrills Lungs: Bilateral crackles worse on the right Abdomen: Soft, nontender, nondistended with active bowel sounds Musculoskeletal: No tenderness, deformity, or edema Neurologic: Awake, alert, and oriented x3, no gross focal neurologic deficits, cranial nerves intact as tested Psych: Mood and affect are appropriate Skin: No rashes Const: Vital Signs, click to edit/add: Vital Signs - 24 hr 06/19/24 23:13 Temperature 98.7 F Pulse Rate [Pulse Oximeter] 89 Respiratory Rate 16 Blood Pressure [Ri ght Upper Arm] 133/84 Pulse Oximetry 96 Oxygen Delivery Me thod Room Air Course Course ED Course: Patient seen examined, reviewed most recent emergency department visit from March 2024 which was for headache and general malaise, normal laboratory evaluation and discharged with gabapentin and prednisone. Patient presents tod ay with 3 weeks of upper respiratory symptoms including runny nose, postnasal drainage, and cough along with muffled hearing on the right and ear pain tonight. On exam here, patient's finally stable. Bilateral crackles worse on the right and bulging erythematous tympanic membrane with adjacent erythema and swelling of external auditory canal. Symptoms are most consistent with upper respiratory infection with acute otitis media, however concern for possible community-acquired pneumonia given crackles on lung exam in ongoing cough. Consider congestive heart failure and pulmonary edema as well although clinically this less likely, did consider chest x-ray but at this point patient will be started on antibiotics to cover both otitis media and community-acquired pneumonia. Patient was started on prednisone, Augmentin, and Flonase. Vital Signs Vital signs: Initial Vital Signs Temperature 98.7 F 06/19/24 23:13 Temperature Source Temporal Artery Scan 06/19/24 23:13 Pulse Rate 89 06/19/24 23:13 Respiratory Rate 16 06/19/24 23:13 Blood Pressure 133/84 06/19/24 23:13 Blood Pressure Mean 100 06/19/24 23:13 Blood Pressure Position Sitting 06/19/24 23:13 Pulse Oximetry 96 06/19/24 23:13 Oxygen Delivery Method Room Air 06/19/24 23:13 Vital Signs Temperature 98.7 F 06/19/24 23:13 Pulse Rate 89 06/19/24 23:13 Respiratory Rate 16 06/19/24 23:13 Blood Pressure 133/84 06/19/24 23:13 Pulse Oximetry 96 06/19/24 23:13 Oxygen Delivery Method Room Air 06/19/24 23:13 Temperature 98.7 F 06/19/24 23:13 Pulse Rate 89 06/19/24 23:13 Respiratory Rate 16 06/19/24 23:13 Blood Pressure 133/84 06/19/24 23:13 Pulse Oximetry 96 06/19/24 23:13 Oxygen Delivery Method Room Air 06/19/24 23:13 Discharge Plan Discharge Clinical Impression: Acute otitis media, Acute upper respiratory infection, Community acquired pneumonia Instructions: Ear Infection (ED), Upper Respiratory Infection (ED) Additional Instructions: Take Tylenol and ibuprofen as needed for pain Take prednisone and antibiotics as prescribed Take Flonase as prescribed Activity Level: No Restrictions Discharge Diet: Regular Prescriptions: New fluticasone propionate [Flonase Allergy Relief] 50 mcg/actuation spray,suspension 1 spray intranasal BID Qty: 16 2RF Rx Instructions: administer into each nostril No Action lisinopril 20 mg tablet 20 mg PO DAILY chlorthalidone 25 mg tablet 25 mg PO DAILY aspirin [Aspirin Childrens] 81 mg tablet,chewable 81 mg PO DAILY gabapentin 300 mg capsule 300 mg PO BID Qty: 60 2RF prednisone 20 mg tablet 20 mg PO BID Qty: 10 0RF Follow Up/Referrals: Jama Natarajan MD [Primary Care Provider] -
--- OUTSIDE RECORDS SUMMARY | 2024-06-20 00:15 | XMS_ITS | Clinical Summary ---
Author Organization [facility] Address [place], [place] [address] Care Team Providers Care Applied Behavior Specialist Name Role Phone Votel, Jama Bonilla MD [...] 11 08/19/2021 Active chlorthalidone (HYGROTON) 25 mg tabletIndications:HT N (hypertension) Take 1 Tablet (25 mg) by mouth once daily. 90 Tablet 3 09/27/2023 Active lisinopriL (PRINIVIL; ZESTRIL) 20 mg tabletIndications:HT N (hypertension) Take 1 Tablet (20 mg) by mouth once daily. 90 Tablet 3 09/27/2023 Active ketoconazole 2% topical (NIZORAL) creamIndications:Int ertrigo Apply topically to affected area(s) two times daily. 60 g 2 09/27/2023 Active benzonatate (TESSALON) 200 mg capsuleIndications:C ough, unspecified type Take 1 Capsule (200 mg) by mouth 3 times daily if needed for Cough. 21 Capsule 05/23/2024 Active codeine-guaiFENesin 10-100 mg/5 mL liquidIndications:Co ugh, unspecified type Take 10 mL by mouth every 4 hours if needed for Cough. 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 [address] [place] [address] Jama Natarajan MD Cough (Not sleeping well, x 1 week); Follow Up (Labs from March) 05/23/2024 Travel 04/11/2024 Orders Only [facility] Scanner 1 scan: (1-Ord) [facility], CHEST 2VW, 04/11/2024 04/05/2024 1:00 PM CDT Ancillary Procedure [facility] [address] [place] [address] 04/05/2024 11:05 AM CDT Office Visit [facility] [address] [place] [address] Duyen Evans PA URI 04/05/2024 Travel from Last 3 Months Immunizations Name Administration Dates Next Due Influenza, IIV3 (Age >=3 years) 07/08/2010 Td (Age >=7 Years) 12/03/1997 Td, Preservative Free (age >= 7 Years) 3 Tdap 12/16/2009 Family History Medical History Relation [...] 0 09/27/2023 Social Connections Answer Date Recorded Do you often feel lonely or isolated from those around you? 0 03/13/2024 Financial Resource Strain Answer Date R ecorded Difficulty of Paying Living Expenses 3 03/13/2024 Difficulty of Paying Living Expenses Not on file 03/13/2024 Food Insecurity Answer Date Recorded Do you worry your food will run out before you are able to buy more? 1 03/13/2024 Transportation Needs Answer Date Record ed Does lack of transportation keep you from medica l appointments? 1 03/13/2024 Does lack of transportation keep you from work, meetings or getting things that you need? 1 03/13/2024 Housing Stability Answer Date Recorded What is your housing situation today? 1 03/13/2024 Sex and Gender Information Value Date Recorded Sex Assigned at Not on file Gender Identity Not on file Sexual Orientation Not on file Obstetrics History Last Filed Vital Signs Vital Sign Reading Time Taken Comments Blood Pressure 136/86 05/23/2024 9:10 AM CDT Pulse 100 05/23/2024 9:10 AM CDT Temperature 36.8 ??C (98.2 ??F) 05/23/2024 9:10 AM CD T Respiratory Rate 16 02/12/2023 2:31 PM CDT Oxygen Saturation 95% 05/23/2024 9:10 AM CDT Inhaled Oxygen Concentration - - Weight 182.8 kg (403 lb) 05/23/2024 9:10 AM CDT Height 175.8 cm (5' 9.2) 05/23/2024 9:10 AM CDT Body Mass Index 59.17 05/23/2024 9:10 AM CDT Plan of Treatment Health Maintenance Due Date Last Done Comments HIV for age 15-65 11/04/1998 Hepatitis C screening for age 18-79 11/04/2001 COVID-19 vaccine series ( season) 2024 Influenza for age 9-49 04/21/2024 07/08/2010 Depression screening for age 12+ 09/27/2024 09/27/2023, 10/20/2022, 08/19/2021, Additional history exists BMI (ht and wt on same day) for age 18+ 05/23/2025 05/23/2024, 03/13/2024, 09/27/2023, Additional history exists Lipids for age 35-44 09/27/2028 09/27/2023, 10/20/2022, 10/20/2016, Additional history exists Tetanus booster 10/20/2032 10/20/2022, 11/20, 12/03/1997 Tdap Completed 12/16/2009 Pneumococcal series for age 6-64 Aged Out No longer eligible based on patient's age to complete this topic Procedures Procedure Name Priority Date/Time Associated Diagnosis Comments CBC W PLT NO DIFF Routine 05/23/2024 10: 05 AM CDT Leukocytosis, unspecified type SCAN-RADIOLOGY REPORT 04/11/2024 12:[address] HEAD BRAIN WO STAT 04/05/2024 12:1 [...] CDT Fever, unspecified fever cause Headache syndrome LIPID PANEL W REFLEX MEASURED LDL Routine 09/27/2023 9:44 AM LIBRARY MANAGER HTN (hypertension) from Last 3 Months or Most Recently Relevant to Health Maintenance Results * CBC W PLT NO DIFF (05/23/2024 10:05 AM CDT) Pathologist [facility] WHITE BLOOD CELL COUNT 9.4 3.8 - 10.8 Thousand/u L [facility] RED BLOOD CELL COUNT 5.04 4.20 - 5.80 Million/uL [facility] HEMOGLOBIN 14.3 13.2 - 17.1 g/dL [facility] HEMATOCRIT 44.5 38.5 - 50.0 % [facility] MCV 88.3 80.0 - 100.0 fL [facility] MCH 28.4 27.0 - 33.0 pg [facility] MCHC 32.1 32.0 - 36.0 g/dL [facility] Comment: For adults, a slight decrease in the calculated MCHC value (in the range of 30 to 32 g/dL) is most likely not clinically significant; however, it should be interpreted with caution in correlation with other red cell parameters and the patient's clinical condition. RDW 14.4 11.0 - 15.0 % [facility] PLATELET COUNT 227 140 - 400 Thousand/u L [facility] MPV 9.2 7.5 - 12.5 fL [facility] Blood BLOOD SPECIMEN / Unknown 05/23/2024 10:05 AM CDT 05/23/2024 10:06 AM CDT Jama Natarajan MD HEMATOLOGY [employer] [facility] [address] [place] [address], [facility] [address] [place] [address] * SCAN-RADIOLOGY REPORT (04/11/2024 12:00 AM CDT) Anatomical Region Laterality Modality Other Scanner OTHER * CT HEAD BRAIN WO (04/05/2024 12:15 [...] imaged are unremarkable. ?? Procedure Note Kevin Crocker DO - 04/05/2024 For Patients: As a [...] BB on 04/08/2024 04/09/2024 11:07 AM CDT [facility] Blood BLOOD SPECIMEN / Unknown Venipuncture / Unknown 04/05/2024 12:07 PM CDT 04/05/2024 12:09 PM CDT Duyen MARIANO LABORATORY [facility] [address] [place] [address], * (ABNORMAL) SEDIMENTATION RATE (04/05/2024 12:07 PM CDT) Pathologist [facility] SEDIMENTATION RATE 18(H) <15 mm/hr 2023 5:[address] [facility] Blood BLOOD SPECIMEN / Unknown Venipuncture / Unknown 04/05/2024 12:07 PM CDT 04/05/2024 12:09 PM CDT Duyen MARIANO HEMATOLOGY [facility] [address] [place] [address] * ANAPLASMA EHRLICHIA JAN PANEL (04/05/2024 12:07 PM CDT) Pathologist [facility] E chaffeensis (HME) IgG Titer Negative Neg:<1:64 04/08/2024 3:[address] [facility] E chaffeensis (HME) IgM Titer Negative Neg:<1:20 04/08/2024 3:[address] [facility] ([facility]) A. PHAGOCYTOPHILUM IGG Negative Neg:<1:64 04/08/2024 3:[address] [facility] ([facility]) A. PHAGOCYTOPHILUM IGM Negative Neg:<1:20 04/08/2024 3:09 PM CDT [facility] ([facility] Comment: Due to a reagent backorder, this test was performed using a different assay. The reference interval for this alternate assay is: ? Negative ?<1:64 ? Positive ? 1:64 or greater RESULT COMMENT EHRLICHIA JAN Comment 04/08/2024 3:09 PM CDT [facility] Comment: Antibody titers may be negative in the first 7-10 days of illness. A four-fold rise in IgG antibody titers for Anaplasma phagocytophilum and/or Ehrlichia chaffeensis in paired samples (acute and convalescent) supports the diagnosis of anaplasmosis and/or ehrlichiosis, respectively. Blood BLOOD SPECIMEN / Unknown Venipuncture / Unknown 04/05/2024 12:07 PM CDT 04/05/2024 12:09 PM CDT Narrative [facility] ([facility]) - 04/08/2024 3:09 PM CDT Performed at: ??01 - [facility] [address] [place] [address] ??[id number] Senior Database Programmer: Rin Trinidad MD, Phone: ??[phone] Duyen MARIANO SEND OUTS [facility] ([facility]) [address] [place] [id number], * ANAPLASMA EHRLICHIA DETECTION PCR (04/05/2024 12:07 PM CDT) A phagocytophilum PCR Negative Negative 04/10/2024 8:11 AM CDT [facility] ([facility] Comment: No Anaplasma phagocytophilum DNA detected. ??A. phagocytophilum has been characterized as the causative agent of Human Granulocytic Ehrlichiosis (HGE). Ehrlichia chaffeensis PCR Negative Negative 04/10/2024 8:11 AM CDT [facility] ([facility] Comment: No Ehrlichia chaffeensis DNA detected. ??E. chaffeensis has been characterized as the causative agent of Human Monocytic Ehrlichiosis (HME). Blood BLOOD SPECIMEN / Unknown Venipuncture / Unknown 04/05/2024 12:07 PM CDT 04/05/2024 12:09 PM CDT Narrative [facility] ([facility]) - 04/10/2024 8:11 AM CDT Test(s) 499538-P. phagocytophilum PCR; [id number]- Ehrlichia chaffeensis PCR was developed and its performance characteristics determined by [facility]. It has not been cleared or approved by the Food and Drug Administration. Performed at: ??01 - [facility] [address] [place] [address] ??[id number] Senior Database Programmer: Rin Trinidad MD, Phone: ??[phone] Duyen MARIANO SEND OUTS [facility] ([facility]) [address] [place] [address], * BABESIA MICROTI JAN IGG IGM PANEL (04/05/2024 12:07 PM CDT) B microti IgG <1:10 Neg:<1:10 04/09/2024 12:[address] [facility] ([facility]) B microti IgM <1:10 Neg:<1:10 04/09/2024 12:08 PM CDT [facility] ([facility]) RESULT COMMENT BABESIA MICROTI JAN Comment 04/09/2024 12:08 PM CDT [facility] ([facility] Comment: Diagnosis of acute babesiosis cannot be [...] PM CDT 04/05/2024 12:[address] [facility] ([facility]) - 04/09/2024 12:08 PM CDT Test(s) 307426-Qfnubes microti IgG; 387240-Bvdsruh microti IgM was developed and its performance characteristics determined by [facility]. It has not been cleared or approved by the Food and Drug Administration. Performed at: ??01 - [address] ??[id number] Senior Database Programmer: Rin Trinidad MD, Phone: ??[phone] Duyen MARIANO SEND OUTS [facility] ([facility]) [address] [place] [phone], * (ABNORMAL) CBC WITH AUTO DIFFERENTIAL (04/05/2024 12:07 PM CDT) WHITE BLOOD COUNT 12.2(H) 4.5 - 11.0 thou/cu mm 04/05/2024 11:10 PM CDT [facility] RED BLOOD COUNT 5.05 4.30 - 5.90 mil/cu mm 04/05/2024 11:10 PM CDT [facility] HEMOGLOBIN 14.5 13.5 - 17.5 g/dL 04/05/2024 11:10 PM CDT [facility] HEMATOCRIT 43.2 37.0 - 53.0 % 04/05/2024 11:10 PM CDT [facility] MCV 86 80 - 100 fL 04/05/2024 11:10 PM CDT [facility] MCH 28.7 26.0 - 34.0 pg 04/05/2024 11:10 PM CDT [facility] MCHC 33.6 32.0 - 36.0 g/dL 04/05/2024 11:10 PM CDT [facility] RDW 16.8(H) 11.5 - 15.5 % 04/05/2024 11:10 PM CDT [facility] PLATELET COUNT 258 140 - 440 thou/cu mm 04/05/2024 11:10 PM CDT [facility] MPV 8.3 6.5 - 11.0 fL 04/05/2024 11:10 PM CDT [facility] Blood BLOOD SPECIMEN / Unknown Venipuncture / Unknown 04/05/2024 12:07 PM CDT 04/05/2024 12:09 PM CDT Duyen MARIANO HEMATOLOGY Performing Organization Address City/[facility]/ZIP Co de Phone Number [facility] [address] [address], [address] [address], * (ABNORMAL) RED CELL MORPHOLOGY (04/05/2024 12:07 PM CDT) POLYCHROMASIA Slight 04/05/2024 11:10 PM CDT [facility] RBC COMMENT Present(A) RBC morphology appears normal, RBC morphology within normal limits for newborns. 04/05/2024 11:10 PM CDT [facility] WBC REACTIVE LYMPHS Present 04/05/2024 11:10 PM CDT [facility] Blood BLOOD SPECIMEN / Unknown Venipuncture / Unknown 04/05/2024 12:07 PM CDT 04/05/2024 12:09 PM CDT Duyen MARIANO HEMATOLOGY [facility] [address] [place] [phone], * PLATELET ESTIMATE (04/05/2024 12:07 PM CDT) PLATELET ESTIMATE Adequate Adequate, No estimate 04/05/2024 11:10 PM CDT [facility] Blood BLOOD SPECIMEN / Unknown Venipuncture / Unknown 04/05/2024 12:07 PM CDT 04/05/2024 12:09 PM CDT Duyen MARIANO HEMATOLOGY [facility] [address] [place] [address], * (ABNORMAL) MANUAL DIFFERENTIAL (04/05/2024 12:07 PM CDT) % NEUTROPHILS 42.3 % 04/05/2024 11:10 PM CDT [facility] % LYMPHOCYTES 43.1 % 04/05/2024 11:10 PM CDT [facility] % MONOCYTES 10.2 % 04/05/2024 11:10 PM CDT [facility] % EOSINOPHILS 3.7 % 04/05/2024 11:10 PM CDT [facility] % BASOPHILS 0.7 % 04/05/2024 11:10 PM CDT [facility] NEUTROPHILS ABSOLUTE 5.2 1.7 - 7.0 thou/cu mm 04/05/2024 11:10 PM CDT [facility] LYMPHOCYTES ABSOLUTE 5.3(H) 0.9 - 2.9 thou/cu mm 04/05/2024 11:10 PM CDT [facility] MONOCYTES ABSOLUTE 1.2(H) <0.9 thou/cu mm 04/05/2024 11:10 PM CDT [facility] EOSINOPHILS ABSOLUTE 0.5(H) <0.5 thou/cu mm 04/05/2024 11:10 PM CDT [facility] BASOPHILS ABSOLUTE 0.1 <0.3 thou/cu mm 04/05/2024 11:10 PM CDT [facility] Blood BLOOD SPECIMEN / Unknown Venipuncture / Unknown 04/05/2024 12:07 PM CDT 04/05/2024 12:09 PM CDT Duyen MARIANO HEMATOLOGY Performing Organization Address City/[facility]/ZIP Co de Phone Number [facility] [address] [place] [phone], * LYME SCREEN W/REFLEX (04/05/2024 12:07 PM CDT) Pathologist [facility] LYME SCREEN W/REFLEX Negative Negative 04/06/2024 9:40 AM CDT [facility] Comment: No laboratory evidence of [...] Duyen MARIANO SEND OUTS Performing Organization Address [facility] Co de Phone Number [facility] [address] [place] [phone], * (ABNORMAL) HETEROPHILE (04/05/2024 12:07 PM CDT) Pathologist [facility] HETEROPHILE Positive(A ) Negative 04/05/2024 1:18 PM CDT [facility] Blood BLOOD SPECIMEN / Unknown Venipuncture / Unknown 04/05/2024 12:07 PM CDT 04/05/2024 12:09 PM CDT Duyen MARIANO HEMATOLOGY Performing Organization Address City/[facility]/ZIP Co de Phone Number [facility] [address] [place] [address], * (ABNORMAL) C-REACTIVE PROTEIN (04/05/2024 12:07 PM CDT) Pathologist [facility] C-REACTIVE PROTEIN 3.3(H) <0.5 mg/dL 04/05/2024 11:56 PM CDT [facility] Blood BLOOD SPECIMEN / Unknown Venipuncture / Unknown 04/05/2024 12:07 PM CDT 04/05/2024 12:09 PM CDT Duyen MARIANO CHEMISTRY Performing Organization Address [facility] Co de Phone Number [facility] [address] [place] [address], * COVID-19 MOLECULAR (04/05/2024 11:46 AM CDT) COVID 19 [facility] MOLECULAR Negative Negative 04/06/2024 2:24 AM CDT [facility]- NTRAL LABORATORY TESTING LABORATORY [facility] 04/06/2024 2:24 AM CDT [facility] Comment:Specimen submitted t o [facility] for testing. Other SPECIMEN FROM NASAL FOSSAE / Unknown Non-Blood / Unknown 04/05/2024 11:46 AM CDT 04/05/2024 11:52 AM CDT Narrative [facility] - 04/06/2024 2:24 AM CDT All PCR tests are subject to false negative result due to variability in viral load and collection technique. A negative result does not rule out a SARS-CoV-2 infection. Clinical correlation required. Duyen MARIANO MICROBIOLOGY Performing Organization Address [facility] Co de Phone Number [facility] [address] [place] [address], * LIPID PANEL W REFLEX MEASURED LDL (09/27/2023 9:44 AM LIBRARY MANAGER) CHOLESTEROL,TOTAL 140 100 - 199 mg/dL 09/27/2023 5:51 PM LIBRARY MANAGER [facility] Comment: Cholesterol, Total Reference Ranges Desirable <200 mg/dL Borderline 200-239 mg/dL High >=240 mg/dL TRIGLYCERIDES 129 <150 mg/dL 09/27/2023 5:51 PM LIBRARY MANAGER [facility] HDL CHOLESTEROL 45 >40 mg/dL 5:51 PM LIBRARY MANAGER [facility] NON-HDL CHOLESTEROL 95 <145 mg/dl 09/27/2023 5:51 PM LIBRARY MANAGER [facility] CHOL/HDL RATIO 3.11 <4.50 09/27/2023 5:51 PM LIBRARY MANAGER [facility] LDL CHOLESTEROL 69 <=130 mg/dL 09/27/2023 5:51 PM LIBRARY MANAGER [facility] VLDL CHOLESTEROL 26 <=30 mg/dL 09/27/2023 5:51 PM LIBRARY MANAGER [facility] TRAL [facility] PROVIDER ORDERED STATUS RANDOM 09/27/2023 5:51 PM LIBRARY MANAGER [facility] TRA [facility]ORATORY Blood BLOOD SPECIMEN / Unknown Venipuncture / Unknown 09/27/2023 9:44 AM LIBRARY MANAGER 09/27/2023 9:47 AM LIBRARY MANAGER Jama Natarajan MD CHEMISTRY [facility] [address] [place] [address], from Last 3 Months or Most Recently Relevant to Health Maintenance Care Teams Applied Behavior Specialist Relationship Specialty Start Date End Date Votel, Jama Bonilla MD [address] [place] [address] PCP - General Family Practice 02/28/23
[2024-06-20 00:20] VITALS: BP 130/72; PULSE 80; RESP 16; O2SAT 98
== END 2024-06-20 00:24 | disposition home or self-care (01) ==
PROVIDERS: Emergency Provider Family Medicine; PCP Family Medicine
DX: H66.91 Otitis media, unspecified, right ear (principal); J18.9 Pneumonia, unspecified organism
CPT/HCPCS: 99284

== ENCOUNTER 2025-06-23 23:19 | Emergency (ER) | payer BC, SELFPAY ==
--- OUTSIDE RECORDS SUMMARY | 2024-03-22 03:01 | XMS_ITS | Continuity of Care Document ---
Author Organization [facility] Address [address] [address] [place] [address] Phone Care Team Providers Care Cafeteria Cashier Name Role Phone Ami Delgado CRNA Unavailable Unavailabl e Allergies, Adverse Reactions, Alerts Substance Reaction Status Criticality No Known Allergies Active No Inform ation Medications Medication Instructions Dosage Effective Dates (start - stop) Status Comments sertraline 50 mg tablet take 1 tablet by oral route every day 50 MG - Active sildenafil 25 mg tablet take 1 tablet by oral route every day as needed approximately 1 hour before sexual activity 25 MG - Active Procedures Procedure Date Colonoscopy Flex; W/remov Les- 24 Level Iv-surg Path Gross/micro 24 Advance Directives Directive Yes / No Effective Date File Name No Information Encounters Encounter Description Practice Location Reason(s) For Visit Diagnoses Date Provider Providers Copied on Encounter [facility], [address] [address], [place], [place], [id number], [place] tel:[phone] [facility] No Information 4 Sandy Mueller. [address] [facility], [facility] [address], [place], [place], [id number], [place]. tel:[phone] [facility], [address] [address], [place], [place], [id number], [place] tel:[phone] [facility] GI Symptoms or Concerns (chief complaint) Colon cancer screeningBenign colon polypBenign neoplasm of ascending colonFamily history of colon polyps, unspecifiedEncou nter for screening for malignant neoplasm of colon 4 No Information Georgi Grijalva MD. tel:[phone] erring Provider: Georgi Grijalva MD [place], [address], [place], [address]. tel:[phone] [facility], [address] [address], [place], [place], [id number], [place] tel:[phone] [facility] No Information 4 No Information [facility], [address] [address], [place], [place], [id number], [place] tel:[phone] [facility] No Information Ahmet Ocasio. [address], [id number], [place]. tel:[phone] Family History Family Member Type Diagnosis Age At Onset Mother Problem (finding) Colon polyps Immunizations Vaccine Date Status Comments Afluria Qd administered Note: M [facility] bi-directional interface ; Source: Other Registry SARS-COV-2 (COVID-19) vaccin e, mRNA, spike protein, LNP, preservative free, 100 mcg/0.5mL dose or 50 mcg/0.25mL dose administered Note: [facility] bi -directional interface ; Source: Other Registry SARS-COV-2 (COVID-19) vaccin e, mRNA, spike protein, LNP, preservative free, 100 mcg/0.5mL dose or 50 mcg/0.25mL dose administered Note: [facility] bi -directional interface ; Source: Other Registry SARS-COV-2 (COVID-19) vaccin e, mRNA, spike protein, LNP, preservative free, 100 mcg/0.5mL dose or 50 mcg/0.25mL dose administered Note: [facility] bi -directional interface ; Source: Other Registry Afluria Qd administered Note: M [facility]IC bi-directional interface ; Source: Other Registry influenza virus vaccine, unspecified formulation administered Note: [facility] bi-di rectional interface ; Source: Other Registry tetanus toxoid, reduced diphtheria toxoid, and acellular pertussis vaccine, adsorbed administered Note: [facility] b i-directional interface ; Source: Other Registry Afluria Qd administered Note: M [facility]IC bi-directional interface ; Source: Other Registry seasonal influenza, intrader mal, preservative free administered Note: [facility] bi-direct ional interface ; Source: Other Registry Influenza, live, trivalent, intranasal administered Note: [facility] bi-direct ional interface ; Source: Other Registry influenza virus vaccine, frances e, attenuated, for intranasal use administered Note: MII C bi- directional interface ; Source: Other Registry tetanus toxoid, reduced diphtheria toxoid, and acellular pertussis vaccine, adsorbed administered Note: [facility] b i-directional interface ; Source: Other Registry Engerix-B administered Note: [facility] bi-d irectional interface ; Source: Other Registry Energix Pediatric administered Note: [facility] bi-directional interface ; Source: Other Registry Energix Pediatric administered Note: [facility] bi-directional interface ; Source: Other Registry meningococcal polysaccharide vaccine (MPSV4) administered Note: [facility] bi-direct ional interface ; Source: Other Registry Payers Payer name Insurance type Covered alliance party ID Authoriza tion(s) [employer] CI [id number] Social History Type Description Quantity Date Captured Comments Sex Male Smoking Status No Information Chief Complaint And Reason For Visit No Information Reason For Referral Reason For Referral No Information History Of Present Illness Encounter Date Complaint History Of Prese nt Illness GI Symptoms or Concerns Functional Status Date Functional Assessmen t No Information Instructions Date Instruction Additional Infor mation Colon Cancer Prevention Related to Colon cancer screening Colon Polyps Related to Colon cancer screening Assessments Type Assessment Date No Information Patient Care Teams Name Effective Dates (start - stop) Status Members No Information
--- OUTSIDE RECORDS SUMMARY | 2024-03-22 03:01 | XMS_ITS | Continuity of Care Document ---
Author Organization [facility] Address [address] [address] [place] [address] Phone Care Team Providers Care Yarding Supervisor Name Role Phone Ami Delgado CRNA Unavailable [...] Diagnoses Date Provider Providers Copied on Encounter [facility], [address] [address], [place], [place], [id number], [place] tel:[phone] [facility] No Information Sandy Mueller. [address] [facility], [facility] [address], [place], [place], [id number], [place]. tel:[phone] [facility], [address] [address], [place], [place], [address], [place] tel:[phone] [facility] GI Symptoms or Concerns (chief complaint) Colon cancer screeningBenign colon polypBenign neoplasm of ascending colonFamily history of colon polyps, unspecifiedEncou nter for screening for malignant neoplasm of colon 4 No Information Georgi Grijalva MD. tel:[phone] erring Provider: Georgi Grijalva MD [place], [address], [place], [address]. tel:[phone] [facility], [address] [address], [place], [place], [id number], [place] tel:[phone] [facility] No Information 4 No Information [facility], [address] [address], [place], [place], [id number], [place] tel:[phone] [facility] No Information Ahmet Ocasio. [address], [id number], [place]. tel:[phone] Family History Family Member Type Diagnosis Age [...] party ID Authoriza tion(s) [employer] CI [id number] Social History Type Description Quantity Date Captured [...]
--- OUTSIDE RECORDS SUMMARY | 2025-06-23 23:20 | XMS_ITS | Clinical Summary ---
Author Organization [facility] Address [address] [place] [address] Care Team Providers Care Skiver Counter Name Role Phone Votel, Jama Bonilla MD Primary Care Provider + Allergies No known active allergies Medications multivitamin (MVI) tablet Take 1 tablet by mouth once daily. 0 0 Active Cranberry 400 mg capsule Take by mouth. 0 1 Active fexofenadine (SUYAPA) 180 mg tablet Take 180 mg by mouth once daily. Do not crush or chew. 0 1 Active aspirin 81 mg cap Take 81 mg by mouth. Active CPAPIndications: ANANYA (obstructive sleep apnea) CPAP machine for home use at pressure 10 cmw epr of 2, nasal mask x1/3month with nasal cushion x2/mo 1 Each 11 1 Active ketoconazole 2% topical (NIZORAL) creamIndications :Intertrigo Apply topically to affected area(s) two times daily. 60 g 2 4 Active benzonatate (TESSALON) 200 mg capsuleIndicatio ns:Cough, unspecified type Take 1 Capsule (200 mg) by mouth 3 times daily if needed for Cough. 21 Capsule 4 Active codeine-guaiFENe sin 10-100 mg/5 mL liquidIndication s:Cough, unspecified type Take 10 mL by mouth every 4 hours if needed for Cough. 180 mL 1 4 Active fluticasone (50 mcg per actuation) nasal solution (FLONASE) 4 Active methylPREDNISolo ne (MEDROL DOSEPAK) 4 mg tabletIndication s:ETD (Eustachian tube dysfunction), bilateral,Chroni c serous otitis media, bilateral Take by mouth as instructed per packaging. 12 Tablet 4 Active azelastine 137 mcg/actuation (ASTELIN) nasal sprayIndications :ETD (Eustachian tube dysfunction), bilateral,Nasal congestion Inhale 1 [place] into affected nostril(s) two times daily. Use as needed. May use in conjunction with nasal steroid medications. 30 mL 2 4 Active fluticasone (50 mcg per actuation) nasal solution (FLONASE)Indicat ions:Nasal obstruction Inhale 1 [place] into affected nostril(s) two times daily. 16 g 3 5 Active azelastine 137 mcg/actuation (ASTELIN) nasal sprayIndications :Nasal obstruction Inhale 1 [place] into affected nostril(s) two times daily. 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 1 03/13/2024 Utilities Answer Date Recorded Do you have trouble paying f or utilities (for example, heat, electricity, water, phone)? 1 03/13/2024 Sex and Gender Information Value Date Recorded Sex Assigned at Not on file Legal Sex Male 5:24 AM AGRONOMY RESEARCH MANAGER Gender Identity Not on file Sexual Orientation Not on file Occupation Industry Job Start Date Job End Date [employer] Not on file Not on file Not on file Obstetrics History Last Filed Vital Signs Vital Sign Reading Time Taken Comments Blood Pressure 136/86 05/23/2024 9:10 AM CDT Pulse 100 05/23/2024 9:10 AM CDT Temperature 36.8 C (98.2 F) 05/23/2024 9:10 AM CDT Respiratory Rate 20 09/18/2024 2:06 PM AGRONOMY RESEARCH MANAGER Oxygen Saturation 95% 05/23/2024 9:10 AM CDT Inhaled Oxygen Concentration - - Weight 182.8 kg (403 lb) 05/23/2024 9:10 AM CDT Height 175.8 cm (5' 9.2) 05/23/2024 9:10 AM CDT Body Mass Index 59.17 05/23/2024 9:10 AM CDT Plan of Treatment Upcoming Encounters Date Type Department Care Team (Late st Contact Info) Description 06/24/2025 3:45 PM AGRONOMY RESEARCH MANAGER Office Visit [facility] [address] [place] [address] Jama Natarajan MD [address] [place] [address] Health Maintenance Due Date Last Done Comments HIV for age 15-65 11/04/1998 Hepatitis C screening for age 18-79 11/04/2001 Hepatitis B series for 19+ (1 of 3 - 19+ 3-dose series) 11/04/2002 HPV series for age 9-45 (1 - 3-dose SCDM series) 11/04/2010 Depression screening for age 12+ 09/27/2024 09/27/2023, 10/20/2022, 08/19/2021, Additional history exists Influenza Vaccine (#1) 2025 07/08/2010 BMI (ht and wt on same day) for age 18+ 05/23/2025 05/23/2024, 03/13/2024, 09/27/2023, Additional history exists Lipids for age 35-44 09/27/2028 09/27/2023, 10/20/2022, 10/20/2016, Additional history exists Tetanus booster 10/20/2032 10/20/2022, 04/2 03/2010, 12/03/1997 RSV vaccine for adults or (1 - 1-dose 75+ series) 11/04/2058 Pneumococcal series for age 6-49 Aged Out No longer eligible based on patient's age to complete this topic Procedures Procedure Name Priority Date/Time Associated Diagnosis Comments LIPID PANEL W REFLEX MEASURED LDL Routine 09/27/2023 9:44 AM AGRONOMY RESEARCH MANAGER HTN (hypertension) from Last 3 Months or Most Recently Relevant to Health Maintenance Results * LIPID PANEL W REFLEX MEASURED LDL (09/27/2023 9:44 AM AGRONOMY RESEARCH MANAGER) CHOLESTEROL,TOTAL 140 100 - 199 mg/dL 09/27/2023 5:51 PM AGRONOMY RESEARCH MANAGER [facility] Comment: Cholesterol, Total Reference Ranges Desirable <200 mg/dL Borderline 200-239 mg/dL High >=240 mg/dL TRIGLYCERIDES 129 <150 mg/dL 09/27/2023 5:51 PM AGRONOMY RESEARCH MANAGER [facility] HDL CHOLESTEROL 45 >40 mg/dL 5:51 PM AGRONOMY RESEARCH MANAGER [facility] NON-HDL CHOLESTEROL 95 <145 mg/dl 09/27/2023 5:51 PM AGRONOMY RESEARCH MANAGER [facility] CHOL/HDL RATIO 3.11 <4.50 09/27/2023 5:51 PM AGRONOMY RESEARCH MANAGER [facility] LDL CHOLESTEROL 69 <=130 mg/dL 09/27/2023 5:51 PM AGRONOMY RESEARCH MANAGER [facility] VLDL CHOLESTEROL 26 <=30 mg/dL 09/27/2023 5:51 PM AGRONOMY RESEARCH MANAGER [facility] PROVIDER ORDERED STATUS RANDOM 09/27/2023 5:51 PM AGRONOMY RESEARCH MANAGER [facility] Blood BLOOD SPECIMEN / Unknown Venipuncture / Unknown 09/27/2023 9:44 AM AGRONOMY RESEARCH MANAGER 09/27/2023 9:47 AM AGRONOMY RESEARCH MANAGER us Jama Natarajan MD CHEMISTRY Final Re s[facility] [address] [place] [address], from Last 3 Months or Most Recently Relevant to Health Maintenance Insurance [facility] Care Teams Skiver Counter Relationship Specialty Start Date End Date Votel, Jama Bonilla [place] [address] PCP - General Family Practice 02/28/23
[2025-06-23 23:27] VITALS: BP 155/97; PULSE 100; RESP 20; TEMP 36.8; O2SAT 95
--- NOTE | 2025-06-23 23:58 | ED.CHESTPAIN ---
HPI - Chest Pain General Date Seen: 06/23/25 Chief Complaint: Chest Pain Stated Complaint: chest pain Time Seen by Provider: 06/23/25 23:21 Source: patient Mode of arrival: ambulatory Limitations: no limitations History of Present Illness HPI narrative: Patient is a 39-year-old male presenting to the emergency department for left-sided chest pain. He states he has been having chest discomfort for past few weeks has been feeling sick. Today he feels like it has been getting worse. States he was laying down couple hours ago only felt sudden sharp pain in his left chest. Previously the pain has been more pressure sensation. Chest pain again started feel more like a pressure sensation. Pain is worse when he coughs. It is also worse when he presses on the slow side of his chest. Pain radiates to his left jaw and left arm. He has history of hypertension and obesity. Sees his primary care provider yearly. No other medical issues he states. No family history of heart disease or sudden the young age. Has not been having any lightheadedness or dizziness. Does state he has some mild shortness of breath that is worse with the pain. Has not noticed any fevers. No history of cancer, recent travel, recent surgeries, hemoptysis. States he was concerned because his home pulse ox said his heart rate was quite elevated. He has never had symptoms like this before. No other concerns noted Related Data Home Medications ?Medication ?Instructions ?Recorded ?Confirmed lisinopril 20 mg tablet 20 mg PO DAILY 05/27/22 06/19/24 aspirin 81 mg chewable tablet 81 mg PO DAILY 04/11/24 06/19/24 (Aspirin Childrens) chlorthalidone 25 mg tablet 25 mg PO DAILY 04/11/24 06/19/24 Previous Rx's ?Medication ?Instructions ?Recorded gabapentin 300 mg capsule 300 mg PO BID #60 caps 04/11/24 prednisone 20 mg tablet 20 mg PO BID #10 tabs 04/11/24 fluticasone propionate 50 1 spray intranasal BID #16 grams 06/20/24 mcg/actuation nasal spray,suspension (Flonase Allergy Relief) Allergies Allergy/AdvReac Type Severity Reaction Status Date / Time No Known Drug Allergies Allergy Verified 06/19/24 23:19 Review of Systems Status of ROS Reports: 10 or more systems reviewed and unremarkable except as noted in History and below PFSH PFSH Social History Smoking Status: Never smoker Do you use any of these nicotine containing products: None Second hand tobacco smoke exposure: No How often do you have a drink containing alcohol: monthly or less How often do you have six or more drinks on one occasion: Never AUDIT-C Alcohol total score: 1 Non-prescribed substance use: denies use service: No Exam Narrative Exam Narrative: Const: Well-nourished, Well-developed, in mild distress Eyes: PERRL, no conjunctival injection, and symmetrical lids HENT: Atraumatic external nose and ears. Moist mucous membranes. Neck: Symmetric, trachea midline, No thyromegaly. CVS: RRR, No murmurs or gallops. Peripheral pulses 2+ and equal in all extremities RESP: Unlabored respiratory effort. Clear to auscultation bilaterally. GI: Nontender/Nondistended, No rebound or guarding. MSK:Extremities w/o deformity, Normal Active ROM, left-sided chest tenderness Skin: Warm, Dry. No rashes or lesions. Neuro: Normal Muscle tone, No focal neurological deficits. Psych: Awake, Alert, & Oriented x3. Appropriate mood and affect. Const Vital Signs, click to edit/add: Vital Signs - 24 hr 06/23/25 23:27 06/24/25 01:08 06/24/25 01:29 Temperature 98.2 F 98.2 F Pulse Rate 84 Pulse Rate [Pulse Oximeter] 100 Respiratory Rate 20 21 Blood Pressure 123/68 Blood Pressure [Right Upper Arm] 155/97 H Pulse Oximetry 95 95 Oxygen Delivery Method Room Air 06/24/25 01:32 06/24/25 02:01 06/24/25 02:35 Temperature 98.2 F 98.2 F 98.2 F Pulse Rate 78 77 Pulse Rate [Pulse Oximeter] Respiratory Rate 23 18 Blood Pressure 124/69 128/70 Blood Pressure [Right Upper Arm] Pulse Oximetry 94 94 Oxygen Delivery Method Course Vital Signs Vital signs: Initial Vital Signs Temperature 98.2 F 06/23/25 23:27 Temperature Source Temporal Artery Scan 06/23/25 23:27 Pulse Rate 100 06/23/25 23:27 Pulse Rhythm Regular 06/23/25 23:27 Respiratory Rate 20 06/23/25 23:27 Blood Pressure 155/97 H 06/23/25 23:27 Blood Pressure Mean 116 H 06/23/25 23:27 Blood Pressure Position Sitting 06/23/25 23:27 Pulse Oximetry 95 06/23/25 23:27 Oxygen Delivery Method Room Air 06/23/25 23:27 Vital Signs Temperature 98.2 F 06/23/25 23:27 Pulse Rate 100 06/23/25 23:27 Respiratory Rate 20 06/23/25 23:27 Blood Pressure 155/97 H 06/23/25 23:27 Pulse Oximetry 95 06/23/25 23:27 Oxygen Delivery Method Room Air 06/23/25 23:27 Temperature 98.2 F 06/24/25 02:35 Pulse Rate 77 06/24/25 02:01 Respiratory Rate 18 06/24/25 02:01 Blood Pressure 128/70 06/24/25 02:01 Pulse Oximetry 94 06/24/25 02:01 Oxygen Delivery Method Room Air 06/23/25 23:27 Medications Administered Medications: Discontinued Medications Generic Name Dose Route Start Last Admin Trade Name Alex PRN Reason Stop Dose Admin Aspirin 324 mg 06/23/25 23:53 06/24/25 00:03 Aspirin 81 Mg Tab.Chew PO 06/23/25 23:54 324 mg ONCE ONE Administration Ketorolac Tromethamine 15 mg 06/24/25 01:19 06/24/25 01:28 Ketorolac 15 Mg/Ml Inj IVP 06/24/25 01:20 Not Given ONCE ONE Ketorolac Tromethamine 30 mg 06/24/25 01:24 06/24/25 01:29 Ketorolac 30 Mg/Ml Inj IM 06/24/25 01:25 30 mg ONCE ONE Administration MDM - Chest Pain MDM Narrative Medical decision making narrative: Patient is a 39-year-old male presenting for chest pain. The differential diagnosis of chest pain is broad and includes common etiologies such as musculoskeletal strain, GERD, pneumonia, etc. More serious etiologies considered include PE, coronary artery disease, pneumothorax, aortic dissection, aortic aneurysm. As the chest pain is exactly reproducible on palpation this seems likely musculoskeletal in nature but with his tachycardia I cannot rule out a PE. D-dimer will be ordered. Also do EKG and troponin to look for also for cardiac abnormalities. He is otherwise appears stable and I have low concern for. Aortic dissection or aortic aneurysm. Chest x-ray ordered to look for signs of pneumonia or pneumothorax. Aspirin given for his chest pain. Patient's lab work shows no acute concerning abnormalities. EKG interpreted by myself shows no concerning abnormalities. Her 40 D-dimer within normal limits. Viral swab were negative. Chest x-ray interpreted by myself and the radiologist shows no concerning abnormalities. We will repeat his troponin at the 2 hour cielo as home the worsening chest pain is rather acute. Although I do believe this is musculoskeletal in nature considering neck reproduce the pain with palpation. Toradol ordered for pain. He was feeling better after the Toradol but the pain did not go away completely. Repeat troponin within normal limits. At this time I believe he is safe for discharge. He is agreeable to this plan. Pain is likely costochondritis. Lab Data Labs: Lab Results 06/24/25 06/24/25 06/24/25 Range/Units 00:00 00:08 02:10 WBC 9.73 (4.50-11.00) K/uL RBC 5.12 (4.30-5.90) m/uL Hgb 14.3 (13.5-17.5) gm/dL Hct 44.6 (37.0-53.0) % MCV 87 (80-100) fL MCH 28 (26-34) pg MCHC 32 (32-36) gm/dL RDW Coeff of Edna 14.2 (11.5-15.5) % Plt Count 245 (140-440) K/uL Neut % (Auto) 67.7 (42.0-72.0) % Lymph % (Auto) 23.4 (20-44) % Nye % (Auto) 6.1 (0.0-11.0) % Eos % (Auto) 2.1 (0.0-7.0) % Baso % (Auto) 0.5 (0.0-3.0) % Neut # (Auto) 6.59 (1.7-7.0) K/uL Lymph # (Auto) 2.28 (0.90-2.90) K/uL Nye # (Auto) 0.60 (0.00-0.90) K/UL Eos # (Auto) 0.20 (0.00-0.50) K/uL Baso # (Auto) 0.05 (0.00-0.30) K/uL Abs Immat Gran (auto) 0.02 (0.00-0.30) K/uL Imm/Tot Granulo (auto) 0.2 % D-Dimer Quant (PE/DVT) 0.35 (0.00-0.50) ug/ml Sodium 138 (135-149) mmol/L Potassium 3.3 L (3.6-5.1) mmol/L Chloride 101 (96-114) mmol/L Carbon Dioxide 30 (20-32) mmol/L Anion Gap 7 (7-15) mEq/L BUN 22 (5-24) mg/dL Creatinine 1.1 (0.5-1.5) mg/dL Estimated GFR 86 ml/min Glucose 110 (60-115) mg/dL Calcium 8.9 (8.4-10.6) mg/dL Magnesium 1.9 (1.5-2.6) mg/dL Troponin I < 0.01 (0.01-0.04) ng/mL NT-Pro-B Natriuret Pep < 20 (See Note) pg/mL SARS-CoV-2 (PCR) Negative SARS-CoV-2 (Negative) Influenza Type A (PCR) Negative PCR FLU A (Negative) Influenza Type B (PCR) Negative PCR FLU B (Negative) RSV (PCR) Negative PCR RSV (Negative) POC Troponin I 0.00 L 0.00 L (0.01-0.04) ng/ml Imaging Data Chest x-ray: Attestation: I have reviewed the pertinent imaging results. Radiologist's impression: No evidence of an acute pulmonary process. Dictated by Timbo Rader MD @ 06/24/2025 12:51:21 AM ECG Data Attestation: I personally reviewed and interpreted this ECG as follows: Prior ECG tracings: available for review Interpretation: Normal sinus rhythm with rate any 2 beats per minute, normal intervals, normal axis, no ST or T-wave abnormalities. Appears similar previous EKG on file. Discharge Plan Discharge Clinical Impression: Costalchondritis Patient Disposition: Home, Self-Care Condition: Stable Instructions: Costochondritis (DC) Additional Instructions: Take tylenol and ibuprofen for pain. If symptoms persist F/u with your PCP. Symptoms are likely from costalchondritis and should resolve on its own Prescriptions: No Action lisinopril 20 mg tablet 20 mg PO DAILY fluticasone propionate [Flonase Allergy Relief] 50 mcg/actuation spray,suspension 1 spray intranasal BID Qty: 16 2RF Rx Instructions: administer into each nostril chlorthalidone 25 mg tablet 25 mg PO DAILY aspirin [Aspirin Childrens] 81 mg tablet,chewable 81 mg PO DAILY gabapentin 300 mg capsule 300 mg PO BID Qty: 60 2RF prednisone 20 mg tablet 20 mg PO BID Qty: 10 0RF Follow Up/Referrals: Jama Natarajan MD [Primary Care Provider, Family Practice] Stand Alone Forms: [facility] [employer] Info Instructions
[2025-06-24] VITALS (8 sets, daily range): BP systolic 115–129; BP diastolic 68–84; PULSE 77–89; RESP 18–23; TEMP 36.8; O2SAT 94–98
[2025-06-24] MEDS: ASPIRIN 81 MG TAB.CHEW 324 MG PO (00:03)
--- OUTSIDE RECORDS SUMMARY | 2025-06-24 00:03 | XMS_ITS | Clinical Summary ---
Author Organization [facility] Address [address] [place] [address] Care Team Providers Care Financial Officer Name Role Phone Votel, Jama Bonilla MD [...] (Eustachian tube dysfunction), bilateral,Nasal congestion Inhale 1 [place] into affected nostril(s) two times daily. Use as needed. May use in conjunction with nasal steroid medications. 30 mL 2 4 Active fluticasone (50 mcg per actuation) nasal solution (FLONASE)Indicat ions:Nasal obstruction Inhale 1 [place] into affected nostril(s) two times daily. 16 g 3 5 Active azelastine 137 mcg/actuation (ASTELIN) nasal sprayIndications :Nasal obstruction Inhale 1 [place] into affected nostril(s) two times daily. 30 [...] Type Department Care Team Description 05/09/[address] [address] VotelJama MD Refill Request (Lisinopril, Chlorthalidone) 05/03/2025 Refill [facility] [address] [place] [address] VotelJama MD Refill Request (Chlorthalidone, Lisinopril) from [...] on file Legal Sex Male 5:24 AM MEDICAL CLAIMS MANAGER Gender Identity Not on file Sexual [...] CDT Respiratory Rate 20 09/18/2024 2:06 PM MEDICAL CLAIMS MANAGER Oxygen Saturation 95% 05/23/2024 9:10 AM CDT Inhaled Oxygen Concentration - - Weight 182.8 kg (403 lb) 05/23/2024 9:10 AM CDT Height 175.8 cm (5' 9.2) 05/23/2024 9:10 AM CDT Body Mass Index 59.17 05/23/2024 9:10 AM CDT Plan of Treatment Upcoming Encounters Date Type Department Care Team (Late st Contact Info) Description 06/24/2025 3:45 PM MEDICAL CLAIMS MANAGER Office Visit [facility] [address] [place] [address] Jama Natarajan MD [address] [place] [address] Health Maintenance Due Date Last Done Comments [...] REFLEX MEASURED LDL Routine 09/27/2023 9:44 AM MEDICAL CLAIMS MANAGER HTN (hypertension) from Last 3 Months or Most Recently Relevant to Health Maintenance Results * LIPID PANEL W REFLEX MEASURED LDL (09/27/2023 9:44 AM MEDICAL CLAIMS MANAGER) CHOLESTEROL,TOTAL 140 100 - 199 mg/dL 09/27/2023 5:51 PM MEDICAL CLAIMS MANAGER [facility] Comment: Cholesterol, Total Reference Ranges Desirable <200 mg/dL Borderline 200-239 mg/dL High >=240 mg/dL TRIGLYCERIDES 129 <150 mg/dL 09/27/2023 5:51 PM MEDICAL CLAIMS MANAGER [facility] HDL CHOLESTEROL 45 >40 mg/dL 5:51 PM MEDICAL CLAIMS MANAGER [facility] NON-HDL CHOLESTEROL 95 <145 mg/dl 09/27/2023 5:51 PM MEDICAL CLAIMS MANAGER [facility] CHOL/HDL RATIO 3.11 <4.50 09/27/2023 5:51 PM MEDICAL CLAIMS MANAGER [facility] LDL CHOLESTEROL 69 <=130 mg/dL 09/27/2023 5:51 PM MEDICAL CLAIMS MANAGER [facility] VLDL CHOLESTEROL 26 <=30 mg/dL 09/27/2023 5:51 PM MEDICAL CLAIMS MANAGER [facility] PROVIDER ORDERED STATUS RANDOM 09/27/2023 5:51 PM MEDICAL CLAIMS MANAGER [facility] Blood BLOOD SPECIMEN / Unknown Venipuncture / Unknown 09/27/2023 9:44 AM MEDICAL CLAIMS MANAGER 09/27/2023 9:47 AM MEDICAL CLAIMS MANAGER us Jama Natarajan MD CHEMISTRY Final Re [facility] [address] [place] [address], from Last 3 Months or Most Recently Relevant to Health Maintenance Insurance [facility] Care Teams Financial Officer Relationship Specialty Start Date End Date Votel, Jama Bonilla [place] [address] PCP - General Family Practice 02/28/23
[2025-06-24 00:12] LABS: Hematocrit* 44.6 % (37.0-53.0); Hemoglobin* 14.3 gm/dL (13.5-17.5); Immature Granulocytes Abs Auto 0.02 K/uL (0.00-0.30); Immature Granulocytes Pct Auto 0.2 %; Lymphocytes Absolute Auto 2.28 K/uL (0.90-2.90); Mean Corpuscular HGB Conc 32 gm/dL (32-36); Mean Corpuscular Hemoglobin 28 pg (26-34); Mean Corpuscular Volume 87 fL (80-100); RDW Coefficient of Variation % 14.2 % (11.5-15.5); Red Blood Count* 5.12 m/uL (4.30-5.90); White Blood Count* 9.73 K/uL (4.50-11.00)
[2025-06-24 00:13] LABS: Slide Review Reflex No
[2025-06-24 00:24] LABS: Chloride* 101 mmol/L (96-114); Potassium* 3.3 mmol/L (3.6-5.1); Sodium* 138 mmol/L (135-149)
[2025-06-24 00:27] LABS: Anion Gap 7 mEq/L (7-15); Blood Urea Nitrogen* 22 mg/dL (5-24); Calcium* 8.9 mg/dL (8.4-10.6); Carbon Dioxide* 30 mmol/L (20-32); Creatinine* 1.1 mg/dL (0.5-1.5); Estimated Glomerular Filt Rate 86 ml/min; Glucose* 110 mg/dL (60-115)
[2025-06-24 00:28] LABS: Troponin, Point-of-Care* 0.00 ng/ml (0.01-0.04)
[2025-06-24 00:30] LABS: D Dimer Quantitative* 0.35 ug/ml (0.00-0.50)
[2025-06-24 00:41] LABS: NT Pro B Type NatriureticPept* < 20 pg/mL (See Note)
[2025-06-24 00:50] LABS: PCR FLU A Negative PCR FLU A (Negative); PCR FLU B Negative PCR FLU B (Negative); PCR RSV Negative PCR RSV (Negative); SARS PCR* Negative SARS-CoV-2 (Negative)
[2025-06-24 02:26] LABS: Troponin, Point-of-Care* 0.00 ng/ml (0.01-0.04)
--- NOTE | 2025-06-24 23:53 | CRLHL7_ITS ---
For Patients: As a result of the Century Cures Act, medical imaging exams and procedure reports are released immediately into your electronic medical record. You may view this report before your referring provider. If you have questions, please contact your health care provider. INDICATION: Left-sided chest pain. TECHNIQUE: Chest 2 views. COMPARISON: 04/11/2024. FINDINGS: Cardiovascular and mediastinum: Heart size and vasculature are normal in caliber and appearance. Lungs and pleural spaces: No focal consolidation, pleural effusion, or pneumothorax. Bones and soft tissues: Unremarkable for age. IMPRESSION: No evidence of an acute pulmonary process. Dictated by Tmibo Rader MD @ 06/24/2025 12:51:21 AM (Electronically Signed)
== END 2025-06-24 03:06 | disposition home or self-care (01) ==
PROVIDERS: Emergency Provider Student in an Organized Health Care Education/Training Program; PCP Family Medicine
DX: M94.0 Chondrocostal junction syndrome [Tietze] (principal)
CPT/HCPCS: 36415; 71046; 80048; 83735; 83880; 84484; 85025; 85379; 87631; 93005; 96372; 96374; 99284; 99285; A9270; J1885